=== PATIENT | male | born 2005 | race Two or more races ===

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

== ENCOUNTER 2023-02-23 18:19 | Emergency (ER) | payer MEDICAID ==
[~2023-02-23] VITALS: Ht 177.8 cm; Wt 101.5 kg
[2023-02-23] MEDS ORDERED: AUG875T PO (19:44)
[2023-02-23] MEDS ORDERED: IBUP-1454 PO (19:44)
[2023-02-23] MEDS ORDERED: IBUPROFEN 600 MG TAB PO ONE (19:45)
[2023-02-23 20:01] VITALS: BP 142/86; PULSE 90; RESP 16; TEMP 99.6; O2SAT 98
== END 2023-02-23 20:05 | disposition home or self-care (01) ==
LOC: ER 18:19
DX: K08.89 Other specified disorders of teeth and supporting structures (principal)

== ENCOUNTER 2023-03-30 08:27 | Emergency (ER) | payer MEDICAID ==
[~2023-03-30] VITALS: Ht 172.7 cm; Wt 104.8 kg
[~2023-03-30 08:27] MED LIST: AUG875T PO; IBUP-1454 PO
[2023-03-30 08:33] VITALS: BP 139/79; PULSE 91; RESP 18; TEMP 97.8; O2SAT 98
[2023-03-30] MEDS ORDERED: AMOX875T3 PO (09:14)
[2023-03-30] MEDS ORDERED: IBUP-1456 PO (09:14)
== END 2023-03-30 09:30 | disposition home or self-care (01) ==
LOC: ER 08:27
DX: H66.93 Otitis media, unspecified, bilateral (principal); Z90.89 Acquired absence of other organs; Z79.1 Long term (current) use of non-steroidal anti-inflammatories (NSAID); Z79.899 Other long term (current) drug therapy

== ENCOUNTER 2023-04-18 13:21 | Emergency (ER) | payer MEDICAID ==
[~2023-04-18] VITALS: Ht 172.7 cm; Wt 109.3 kg
[~2023-04-18 13:21] MED LIST changes: +AMOX875T3 PO; +IBUP-1456 PO
[2023-04-18 13:46] VITALS: BP 133/69; PULSE 81; RESP 18; O2SAT 96
[2023-04-18] MEDS ORDERED: IBUP-1456 PO (14:35)
== END 2023-04-18 14:46 | disposition home or self-care (01) ==
LOC: ER 13:21
DX: S93.491A Sprain of other ligament of right ankle, initial encounter (principal); Z98.890 Other specified postprocedural states; Z79.1 Long term (current) use of non-steroidal anti-inflammatories (NSAID); Z79.899 Other long term (current) drug therapy; X37.1XXA Tornado, initial encounter; Y93.89 Activity, other specified; Y92.098 Other place in other non-institutional residence as the place of occurrence of the external cause; Y99.8 Other external cause status
CPT/HCPCS: 73610; 73630

== ENCOUNTER 2023-04-18 19:37 | Emergency (ER) | payer MEDICAID ==
[~2023-04-18] VITALS: Ht 170.2 cm; Wt 106.0 kg
[2023-04-18 20:07] VITALS: BP 123/78; PULSE 84; RESP 20; O2SAT 98
== END 2023-04-19 00:42 | disposition left against medical advice (07) ==
LOC: ER 19:42
DX: S93.401D Sprain of unspecified ligament of right ankle, subsequent encounter (principal); Z53.21 Procedure and treatment not carried out due to patient leaving prior to being seen by health care provider; X50.1XXD Overexertion from prolonged static or awkward postures, subsequent encounter

== ENCOUNTER 2024-01-26 08:36 | Emergency (ER) | payer MEDICAID ==
[~2024-01-26] VITALS: Ht 177.8 cm; Wt 106.0 kg
[~2024-01-26 08:36] MED LIST changes: +IBUP1TAB5 PO
[2024-01-26] MEDS ORDERED: AZIT500T66 PO (10:22)
[2024-01-26] MEDS ORDERED: ACET-1304 PO (10:22)
[2024-01-26 10:38] VITALS: BP 137/86; PULSE 83; RESP 18; O2SAT 100
== END 2024-01-26 10:45 | disposition home or self-care (01) ==
LOC: ER 08:36
DX: U07.1 COVID-19 (principal); J03.90 Acute tonsillitis, unspecified; Z79.899 Other long term (current) drug therapy; Z90.89 Acquired absence of other organs; Z79.1 Long term (current) use of non-steroidal anti-inflammatories (NSAID)

== ENCOUNTER 2024-03-21 17:25 | Emergency (ER) | payer MEDICAID ==
[~2024-03-21] VITALS: Ht 180.3 cm; Wt 65.2 kg
[~2024-03-21 17:25] MED LIST changes: +ACET-1304 PO; +AZIT500T66 PO
[2024-03-21 18:36] VITALS: BP 140/86; PULSE 93; RESP 17; TEMP 99.1; O2SAT 97
[2024-03-21] MEDS: AZITHROMYCIN 250 MG TAB PO ONE (20:02)
[2024-03-21] MEDS: cefTRIAXone SODIUM 250 MG VL IM ONE (20:02)
[2024-03-24 12:06] LABS: Chlamydia Trachomatis, NAA Negative (Negative); Neisseria gonorrhoeae, NAA Negative (Negative)
== END 2024-03-21 20:29 | disposition home or self-care (01) ==
LOC: ER 17:25
DX: N48.9 Disorder of penis, unspecified (principal); Z20.2 Contact with and (suspected) exposure to infections with a predominantly sexual mode of transmission
CPT/HCPCS: 87491; 87591; 96372; 99283; J0696

== ENCOUNTER 2024-05-30 16:55 | Emergency (ER) | payer MEDICAID ==
[~2024-05-30] VITALS: Ht 175.3 cm; Wt 105.6 kg
[2024-05-30 17:29] VITALS: BP 118/99; PULSE 88; RESP 18; TEMP 98.5; O2SAT 97
[2024-05-30] MEDS ORDERED: CEPH500C PO (17:32)
--- NOTE | 2024-05-30 17:33 | ED.PDOC ---
History of Present Illness(SKN HPI Comments A 18 YEAR OLD MALE PRESENTS TO THE ED WITH COMPLAINT OF BLISTER OF RIGHT PLANTAR FOOT. PATIENT STATES HE HAS BEEN WALKING A LOT LATELY AND NOTES A BLISTER ON HIS RIGHT PLANTAR FOOT HOT TODAY AND BEGAN TO BLEED. PATIENT WOULD LIKE TO HAVE THIS BLISTER WOUND CHECKED. PATIENT DENIES FEVER, CHILLS, SHORTNESS OF BREATH, CHEST PAIN, ABDOMINAL PAIN, NAUSEA, VOMITING, HEADACHE, OR OTHER COMPLAINTS. NO OTHER SYMPTOMS OR MODIFYING FACTORS AT THIS TIME. PATIENT IS ALERT, ORIENTED X 4, AND HAS STEADY GAIT. Chief Complaint: Lower Extremity Time Seen by MD: 17:09 Primary Care Provider: YANI History of Present Illness: Nurses Notes, Medications, Allergies Allergies: Coded Allergies: NO KNOWN ALLERGIES (Unverified , 05/03/15) Home Meds Active Scripts Ibuprofen (Ibuprofen) 800 Mg Tab, 1 TAB PO TID, #24 TAB Prov:RODRIGO ORLANDO 05/30/24 Cephalexin Monohydrate (Cephalexin) 500 Mg Cap, 1 CAP PO QID, #28 CAP Prov:RODRIGO ORLANDO 05/30/24 Acetaminophen (Tylenol Extra Strength Fo) 500 Mg Tab, 650 MG PO TID, #30 TAB Prov:RODRIGO ORLANDO 01/26/24 Azithromycin (Azithromycin) 500 Mg Tab, 1 TAB PO DAILY, #5 TAB Prov:RODRIGO ORLANDO 01/26/24 Ibuprofen Micronized (Ibuprofen) 600 Mg Tab, 600 MG PO TIDP PRN for 30 Days, #90 TAB 0 Refills Prov:KOBE MEJIA NP 01/09/24 Ibuprofen (Ibuprofen) 800 Mg Tab, 1 TAB PO TID, #30 TAB Prov:RODRIGO ORLANDO 04/18/23 Ibuprofen (Ibuprofen) 800 Mg Tab, 1 TAB PO TID, #24 TAB Prov:RODRIGO ORLANDO 03/30/23 Amoxicillin Trihydrate (Amoxicillin) 875 Mg Tab, 1 TAB PO BID, #20 TAB Prov:RODRIGO ORLANDO 03/30/23 Ibuprofen (Ibuprofen) 600 Mg Tab, 1 TAB PO Q6HPRN PRN, #30 TAB 0 Refills Prov:LUCA BONILLA 02/23/23 Amoxicillin & Pot Clavulanate (AUGMENTIN TABLET) 875 Mg Tb, 875 MG PO BID for 7 Days, #14 TAB 0 Refills Prov:LUCA BONILLA HIEU 02/23/23 Information Source: Patient Mode of Arrival: Ambulatory Severity: Moderate Timing: Hours Duration: Since onset, Hours Prehospital treatment: None Location: Foot (RIGHT PLANTAR FOOT) Mechanism: Spontaneous Onset Occurence: Indoors Object: None Condition of Object: None Retained Foreign Body: No Wound Type: Other (BLISTER) Immunization Status of Animal: NA Tetanus: Unknown History of: None Associated Signs and Symptoms: Redness, Pain Past Medical History PAST MEDICAL HISTORY: Denies Surgical History: Thyroidectomy Family History Family History: Reviewed,noncontributory to illness Social History Smoker: Non-Smoker Alcohol: Denies ETOH Use Drugs: Denies Drug Use Lives In: Home Constitutional: denies: chills, diaphoresis, fatigue, fever, malaise, sweats, weakness, others EENTM: denies: blurred vision, double vision, ear bleeding, ear discharge, ear drainage, ear pain, ear ringing, eye pain, eye redness, hearing loss, mouth pain, mouth swelling, nasal discharge, nose bleeding, nose congestion, nose pain, photophobia, tearing, throat pain, throat swelling, voice changes, others Respiratory: denies: cough, hemoptysis, orthopnea, SOB at rest, shortness of breath, SOB with excertion, stridor, wheezing, others Cardiovascular: denies: chest pain, dizzy spells, diaphoresis, Dyspnea on exertion, edema, irregular heart beat, left arm pain, lightheadedness, palpitations, PND, syncope, others Gastrointestinal: denies: abdomen distended, abdominal pain, blood streaked bowels, constipated, diarrhea, dysphagia, difficulty swallowing, hematemesis, melena, nausea, poor appetite, poor fluid intake, rectal bleeding, rectal pain, vomiting, others Genitourinary: denies: burning, dysuria, flank pain, frequency, hematuria, incontinence, penile discharge, penile sore, pain, testicle pain, testicle swelling, urgency, others Neurological: denies: dizziness, fainting, headache, left sided numbness, left sided weakness, numbness, paresthesia, pre-existing deficit, right sided numbness, right sided weakness, seizure, speech problems, tingling, tremors, w eakness, others Musculoskeletal: denies: back pain, gout, joint pain, joint swelling, muscle pain, muscle stiffness, neck pain, others Integumetry: reports: lesions, wounds, others (BLISTER OF RIGHT PLANTAR FOOT); denies: bruises, change in color, change in hair/nails, dryness, laceration, lumps, rash Allergic/Immunocompromised: denies: Difficulty Healing, Frequent Infections, Hives, Itching, others Hematologic/Lymphatic: denies: anemia, blood clots, easy bleeding, easy bruising, swollen glands, others Endocrine: denies: excessive hunger, excessive sweating, excessive thirst, excessive urination, flushing, intolerance to cold, intolerance to heat, unexplained weight gain, unexplained weight loss, others Psychiatric: denies: anxiety, bipolar disorder, depression, hopeless, panic disorder, schizophrenia, sleepless, suicidal, others All Other Systems: Reviewed and Negative Physical Exam General Appearance: No Apparent Distress, Obese HEENT: Normal ENT Inspection, PERRL/EOMI, Pharynx Normal, TMs Normal Neck: Full Range of Motion, Non-Tender, Normal, Normal Inspection Respiratory: Chest Non-Tender, Lungs Clear, No Accessory Muscle Use, No Respiratory Distress, Normal Breath Sounds Cardiovascular: No Edema, No JVD, No Murmur, No Gallop, Normal Peripheral Pulses, Regular Rate/Rhythm Breast Exam: Deferred Gastrointestinal: No Organomegaly, Non Tender, No Pulsatile Mass, Normal Bowel Sounds, Soft Genitalia: Deferred Pelvic: Deferred Rectal: Deferred Extremities: No calf tenderness, Normal capillary refill, Normal range of motion, No pedal edema, Tender (WITH ONE BIG BLISTER ON RIGHT PLANTAR FOOT, NO BONY TENDERNESS AND SWELLING. ) Musculoskeletal : Apperance: Normal Neurologic: Alert, private detective II-XII nml as Tested, No Motor Deficits, Normal Affect, Normal Mood, No Sensory Deficits Cerebellar Function: Normal Reflexes: Normal Skin: Dry, Normal Color, Warm, Wounds (A BIG RUPTURED BLISTER ON RIGHT PLANTAR FOOT, NO BLEEDING, FB AND SWELLING. ) Peripheral Pulses: 2+ carotid (R), 2+ carotid (L), 2+ dorsalis pedis (R), 2+ dorsalis pedis (L) Lymphatic: No Adenopathy Was a procedure done? Was a procedure done?: No Differential Diagnosis (INTG) Differential Diagnosis: Cellulitis, Insect Envenomation, Puncture Wound, Other (BLISTER) Differential Diagnosis: N/A Differential Diagnosis: N/A Abscess: N/A Differential Diagnosis: N/A X-Ray, Labs, Meds, VS Vital Signs Date Time Temp Pulse Resp B/P (MAP) Pulse Ox O2 Delivery O2 Flow Rate FiO2 05/30/24 17:29 88 18 97 Room Air 05/30/24 17:29 98.5 88 18 118/99 (105) 97 98.5 05/30/24 17:03 98.5 88 18 118/79 (92) 97 X-Ray, Labs, Meds, VS Comment TREATMENT: SKIN FROM PATIENT'S RIGHT PLANTAR FOOT WAS REMOVED AND PATIENT'S BLISTER WOUND WAS THEN CLEANED USING NORMAL SALINE. STERILE GAUZE WAS THEN APPLIED. PATIENT TOLERATED WELL. Time of 1ST Reevaluation: 18:00 Reevaluation 1ST: Improved Patient Education/Counseling: Diagnosis, Treatment, Need For Follow Up Family Education/Counseling: Diagnosis, Treatment, Need For Follow Up Medical Screening: No EMC Exist At This Time Departure 1 Departure Time of Disposition: 18:00 Impression: Primary Impression: Blister of plantar aspect of right foot Qualified Codes: S90.821A - Blister (nonthermal), right foot, initial encounter Disposition: HOME / SELF CARE / HOMELESS Condition: Stable Additional Instructions: FOLLOW-UP WITH PCP IN 1 TO 2 DAYS. TAKE MEDICATIONS PRESCRIBED. RETURN TO ED FOR ANY NEW OR WORSENING SYMPTOMS. e-Prescriptions Ibuprofen (Ibuprofen) 800 Mg Tab 1 TAB PO TID, #24 TAB Prov: RODRIGO ORLANDO 05/30/24 Cephalexin Monohydrate (Cephalexin) 500 Mg Cap 1 CAP PO QID, #28 CAP Prov: RODRIGO ORLANDO 05/30/24 Discharged With: Self Critical Care Note Critical Care Time?: No Stability Stability form required: No I personally scribed for RODRIGO ORLANDO ([email or web address]) on 05/30/24 at 17:33. Electronically submitted by Eugenio Gomez ([email or web address]). RODRIGO ORLANDO May 30, 2024 17:33
[2024-05-30] MEDS: IBUPROFEN 800 MG TAB PO ONE (17:35)
== END 2024-05-30 17:50 | disposition home or self-care (01) ==
LOC: ER 16:55
DX: S90.821A Blister (nonthermal), right foot, initial encounter (principal); Z79.1 Long term (current) use of non-steroidal anti-inflammatories (NSAID); Z90.89 Acquired absence of other organs; Z79.899 Other long term (current) drug therapy; X58.XXXA Exposure to other specified factors, initial encounter; Y93.89 Activity, other specified; Y92.89 Other specified places as the place of occurrence of the external cause; Y99.8 Other external cause status

== ENCOUNTER 2024-06-29 10:47 | Emergency (ER) | payer MEDICAID ==
[~2024-06-29 10:47] MED LIST changes: +CEPH500C PO
== END 2024-06-29 11:17 | disposition left against medical advice (07) ==
LOC: ER 10:47
DX: R10.9 Unspecified abdominal pain (principal); Z53.21 Procedure and treatment not carried out due to patient leaving prior to being seen by health care provider

== ENCOUNTER 2024-07-02 04:06 | Emergency (ER) | payer MEDICAID ==
[~2024-07-02] VITALS: Ht 180.3 cm; Wt 108.9 kg
[2024-07-02 04:46] VITALS: BP 121/80; PULSE 63; RESP 16; TEMP 98.9; O2SAT 97
[2024-07-02] MEDS ORDERED: ALBUAER3 IN (04:56)
[2024-07-02] MEDS ORDERED: PRED20TA2 PO (04:56)
[2024-07-02] MEDS ORDERED: AMOX875T4 PO (04:56)
[2024-07-02] MEDS ORDERED: ACET500T58 PO (04:56)
--- NOTE | 2024-07-02 04:56 | ED.PDOC ---
SOB-HPI HPI Comments 18-year-old male presents to ER with complaints of cough x2 days. Patient with PMH of asthma reports he has been experiencing productive cough with green phlegm, sore throat and congestion x2 days. Reports he has been using [id number] Mucinex for his symptoms without relief. He reports 7/10 sore throat pain, denying any other pain. Patient also states he recently ran out of his albuterol inhaler that he uses as needed for asthma and is requesting a refill of this in ER today. Denies fever, body aches, chills, shortness of breath, hemoptysis, chest pain, difficulty swallowing, known exposure to sick contacts or any further symptoms/complaints Chief Complaint: Cough Time Seen by MD: 04:15 Primary Care Provider: YANI Corona notes: Nurses Notes, Medications, Allergies Information Source: Patient Mode of Arrival: Ambulatory Past Medical History PAST MEDICAL HISTORY: Asthma Surgical History: Tonsillectomy Family History Family History: Unknown Social History Smoker: Non-Smoker Alcohol: Denies ETOH Use Drugs: Denies Drug Use Lives In: Home Constitutional: denies: chills, diaphoresis, fatigue, fever, malaise, sweats, weakness, others EENTM: reports: others (As stated in HPI) Respiratory: reports: others (As stated in HPI) Cardiovascular: denies: chest pain, dizzy spells, diaphoresis, Dyspnea on exertion, edema, irregular heart beat, left arm pain, lightheadedness, palpit ations, PND, syncope, others Gastrointestinal: denies: abdomen distended, abdominal pain, blood streaked b owels, constipated, diarrhea, dysphagia, difficulty swallowing, hematemesis, melena, nausea, poor appetite, poor fluid intake, rectal bleeding, rectal pain, vomiting, others Genitourinary: denies: burning, dysuria, flank pain, frequency, hematuria, incontinence, penile discharge, penile sore, pain, testicle pain, testicle swelling, urgency, others Neurological: denies: dizziness, fainting, headache, left sided numbness, left sided weakness, numbness, paresthesia, pre-existing deficit, right sided numbness, right sided weakness, seizure, speech problems, tingling, tremors, weakness, others Musculoskeletal: denies: back pain, gout, joint pain, joint swelling, muscle pain, muscle stiffness, neck pain, others Integumetry: denies: bruises, change in color, change in hair/nails, dryness, laceration, lesions, lumps, rash, wounds, others Allergic/Immunocompromised: denies: Difficulty Healing, Frequent Infections, Hives, Itching, others Hematologic/Lymphatic: denies: anemia, blood clots, easy bleeding, easy bruisi ng, swollen glands, others Endocrine: denies: excessive hunger, excessive sweating, excessive thirst, exce ssive urination, flushing, intolerance to cold, intolerance to heat, unexplained weight gain, unexplained weight loss, others Psychiatric: denies: anxiety, bipolar disorder, depression, hopeless, panic disorder, schizophrenia, sleepless, suicidal, others Physical Exam General Appearance: No Apparent Distress, Obese HEENT: Normal ENT Inspection, PERRL/EOMI, Pharynx Normal, TMs Normal Neck: Full Range of Motion, Non-Tender, Normal Respiratory: Chest Non-Tender, Lungs Clear, No Accessory Muscle Use, No Respiratory Distress, Normal Breath Sounds Cardiovascular: No Murmur, No Gallop, Regular Rate/Rhythm Breast Exam: Deferred Gastrointestinal: NOT DONE Genitalia: Deferred Pelvic: Deferred Rectal: Deferred Extremities: Normal capillary refill, Normal range of motion Neurologic: Alert, No Motor Deficits, Normal Affect, Normal Mood, No Sensory Deficits Cerebellar Function: Normal Reflexes: Normal Skin: Dry, Normal Color, Warm Peripheral Pulses: 2+ Radial (R), 2+ Radial (L), 2+ Brachial (R), 2+ Brachial (L) Lymphatic: No Adenopathy Was a procedure done? Was a procedure done?: No Sedation Sedation?: No Differential Dx Differential Diagnosis: Pneumonia, Respiratory Distress, Pharyngitis X-Ray, Labs, Meds, VS Vital Signs Date Time Temp Pulse Resp B/P (MAP) Pulse Ox O2 Delivery O2 Flow Rate FiO2 07/02/24 04:46 98.9 63 16 121/80 (94) 97 98.9 07/02/24 04:46 63 16 97 Room Air 07/02/24 04:29 98.9 63 16 121/80 (94) 97 07/02/24 04:29 16 97 Room Air* 0 21 Advised to drink plenty of fluids Patient in no distress during ER visit/prior to discharge Advised to follow up with PCP in 1-2 days Patient verbalized understanding and agreeable with current plan of care Advised to return to ER immediately if symptoms worsen Time of 1ST Reevaluation: 04:24 Reevaluation 1ST: N/A Patient Education/Counseling: Diagnosis, Treatment, Prognosis, Need For Follow Up Family Education/Counseling: No Family Present Departure 1 Departure Time of Disposition: 04:52 Impression: Primary Impression: URI (upper respiratory infection) Qualified Codes: J06.9 - Acute upper respiratory infection, unspecified Disposition: 01 HOME / SELF CARE / HOMELESS Condition: Stable e-Prescriptions Albuterol Sulfate (VENTOLIN MDI) 90 Mcg Ih 2 PUFF IN Q4HPRN, #1 INH 0 Refills Prov: JONATHAN LOPEZ 07/02/24 Acetaminophen (Acetaminophen) 500 Mg Tab 500 MG PO Q4HPRN, #30 TAB 0 Refills Prov: JONATHAN LOPEZ 07/02/24 Prednisone (Prednisone) 20 Mg Tab 20 MG PO BID for 5 Days, #10 TAB 0 Refills Prov: JONATHAN LOPEZ 07/02/24 Amoxicillin & Pot Clavulanate (Amoxicillin/Potassium Cla) 875 Mg Tab 1 TAB PO BID for 7 Days, #14 TAB 0 Refills Prov: JONATHAN LOPEZ 07/02/24 Discharged With: Self Critical Care Note Critical Care Time?: No Stability Stability form required: No Heart Score Heart Score: Heart Score Response (Comments) Value History N/A 0 EKG N/A 0 Age N/A 0 Risk Factors N/A 0 Troponin N/A 0 Total 0 JONATHAN LOPEZ Jul 02, 2024 04:56
== END 2024-07-02 05:07 | disposition home or self-care (01) ==
LOC: ER 04:06
DX: J06.9 Acute upper respiratory infection, unspecified (principal); J45.909 Unspecified asthma, uncomplicated; Z90.89 Acquired absence of other organs

== ENCOUNTER 2024-07-04 07:16 | Emergency (ER) | payer MEDICAID ==
[~2024-07-04] VITALS: Ht 180.3 cm; Wt 105.6 kg
[~2024-07-04 07:16] MED LIST changes: +ACET500T58 PO; +ALBUAER3 IN; +AMOX875T4 PO; +PRED20TA2 PO
[2024-07-04 08:06] VITALS: BP 136/90; PULSE 105; RESP 20; TEMP 99.6; O2SAT 97
[2024-07-04] MEDS ORDERED: PROM1SOL4 PO (08:43)
[2024-07-04] MEDS ORDERED: LIDO2SOL26 MT (08:43)
[2024-07-04] MEDS: cefTRIAXone SOD 1,000 MG VL IM ONE (08:46)
--- NOTE | 2024-07-04 08:47 | ED.PDOC ---
SOB-HPI HPI Comments A 18 YEAR OLD MALE PRESENTS TO THE ED WITH COMPLAINT OF COUGH AND SORE THROAT. PATIENT STATES HE HAS BEEN EXPERIENCING COUGH, CONGESTION, BODY ACHES, AND A SORE THROAT FOR THE PAST 3 DAYS. PATIENT REPORTS HE CAME TO THIS ED YESTERDAY MORNING FOR THE SAME COMPLAINT WHERE HE WAS PRESCRIBED AUGMENTIN, PREDNISONE, TYLENOL, AND AN ALBUTEROL INHALER. PATIENT ALSO NOTES HE WENT TO [facility] 2 DAYS AGO FOR THIS COMPLAINT WHERE HE WAS GIVEN A STEROID INJECTION, BUT STATES THERE IS NO IMPROVEMENT. PATIENT REPORTS HE TOOK ONE DOSE OF HIS MEDICATION HE WAS PRESCRIBED YESTERDAY AND DID NOT REPORT ANY IMPROVEMENT, PROMPTING HIM TO COME TO THE ED TODAY FOR EVALUATION ONCE AGAIN. PATIENT DENIES FEVER, CHILLS, SHORTNESS OF BREATH, CHEST PAIN, ABDOMINAL PAIN, NAUSEA, VOMITING, HEADACHE, OR OTHER COMPLAINTS. NO OTHER SYMPTOMS OR MODIFYING FACTORS AT THIS TIME. PATIENT IS ALERT, ORIENTED X 4, AND HAS STEADY GAIT. Chief Complaint: Cough Time Seen by MD: 07:40 Primary Care Provider: YANI Corona notes: Nurses Notes, Medications Information Source: Patient Mode of Arrival: Ambulatory Severity: Moderate Timing: Days Duration: Since onset, Days Context: Spontaneous Onset PE Risk Factors: None History of: None Prehospital treatment: None Modifying Factors: Nothing Associated Signs and Symptoms: Cough, Nasal Congestion, Sore Throat If cough with SOB: Productive Past Medical History PAST MEDICAL HISTORY: Asthma Surgical History: Tonsillectomy Family History Family History: Reviewed,noncontributory to illness Social History Smoker: Non-Smoker Alcohol: Denies ETOH Use Drugs: Denies Drug Use Lives In: Home Constitutional: denies: chills, diaphoresis, fatigue, fever, malaise, sweats, weakness, others EENTM: reports: nose congestion, throat pain, throat swelling; denies: blurred vision, double vision, ear bleeding, ear discharge, ear drainage, ear pain, ear ringing, eye pain, eye redness, hearing loss, mouth pain, mouth swelling, nasal discharge, nose bleeding, nose pain, photophobia, tearing, voice changes, others Respiratory: reports: cough; denies: hemoptysis, orthopnea, SOB at rest, shortness of breath, SOB with excertion, stridor, wheezing, others Cardiovascular: denies: chest pain, dizzy spells, diaphoresis, Dyspnea on exertion, edema, irregular heart beat, left arm pain, lightheadedness, palpitations, PND, syncope, others Gastrointestinal: denies: abdomen distended, abdominal pain, blood streaked bowels, constipated, diarrhea, dysphagia, difficulty swallowing, hematemesis, melena, nausea, poor appetite, poor fluid intake, rectal bleeding, rectal pain, vomiting, others Genitourinary: denies: burning, dysuria, flank pain, frequency, hematuria, incontinence, penile discharge, penile sore, pain, testicle pain, testicle swelling, urgency, others Neurological: denies: dizziness, fainting, headache, left sided numbness, left sided weakness, numbness, paresthesia, pre-existing deficit, right sided numbness, right sided weakness, seizure, speech problems, tingling, tremors, weakness, others Musculoskeletal: reports: muscle pain; denies: back pain, gout, joint pain, silke nt swelling, muscle stiffness, neck pain, others Integumetry: denies: bruises, change in color, change in hair/nails, dryness, laceration, lesions, lumps, rash, wounds, others Allergic/Immunocompromised: denies: Difficulty Healing, Frequent Infections, Hives, Itching, others Hematologic/Lymphatic: denies: anemia, blood clots, easy bleeding, easy bruising, swollen glands, others Endocrine: denies: excessive hunger, excessive sweating, excessive thirst, excessive urination, flushing, intolerance to cold, intolerance to heat, unexplained weight gain, unexplained weight loss, others Psychiatric: denies: anxiety, bipolar disorder, depression, hopeless, panic disorder, schizophrenia, sleepless, suicidal, others All Other Systems: Reviewed and Negative Physical Exam General Appearance: No Apparent Distress, Normal HEENT: PERRL/EOMI, Pharyngeal Erythema (VESICLE PHARYNX WITH RED SPOTS, NO EXUDATES, tREP PHARYNGITIS?? ), TMs Normal Neck: Full Range of Motion, Non-Tender, Normal, Normal Inspection Respiratory: Chest Non-Tender, Lungs Clear, No Accessory Muscle Use, No Respiratory Distress, Normal Breath Sounds Cardiovascular: No Edema, No JVD, No Murmur, No Gallop, Normal Peripheral Pulses, Regular Rate/Rhythm Breast Exam: Deferred Gastrointestinal: No Organomegaly, Non Tender, No Pulsatile Mass, Normal Bowel Sounds, Soft Genitalia: Deferred Pelvic: Deferred Rectal: Deferred Extremities: No calf tenderness, Normal capillary refill, Normal inspection, Normal range of motion, Non-tender, No pedal edema Musculoskeletal : Apperance: Normal Neurologic: Alert, sweet pickle maker II-XII nml as Tested, No Motor Deficits, Normal Affect, Normal Mood, No Sensory Deficits Cerebellar Function: Normal Reflexes: Normal Skin: Dry, Normal Color, Warm Peripheral Pulses: 2+ carotid (R), 2+ carotid (L) Lymphatic: No Adenopathy Was a procedure done? Was a procedure done?: No Differential Dx Differential Diagnosis: Bronchitis, Pneumonia, Sinusitis, Allergic Rhinitis, Otitis Media, Pharyngitis, URI X-Ray, Labs, Meds, VS Vital Signs Date Time Temp Pulse Resp B/P (MAP) Pulse Ox O2 Delivery O2 Flow Rate FiO2 07/04/24 08:06 105 20 97 Room Air 07/04/24 08:06 99.6 105 20 136/90 (105) 97 99.6 07/04/24 07:40 99.6 105 20 136/90 (105) 97 PATIENT: DANDY KEBEDEACCT: [id number]: [id number] : 2005 LOC: ER ROOM / BED: / AGE / SEX: 18 / M ADM STATUS: REG ER SERVICE 6 ORDERING PHYSICIAN: RODRIGO ORLANDO PROCEDURE(s): CXRP - CHEST PORTABLE REASON: COUGH ORDER NUMBER(s): [id number], ACCESSION NUMBER(s): [id number] CHEST RADIOGRAPH Indication: COUGH Technique: Single frontal view of the chest was obtained COMPARISON: None FINDINGS: Lines and Tubes: None Lungs: Clear Pleura: No effusion. No pneumothorax. Cardiomediastinal contours: Unremarkable Bones: Unremarkable IMPRESSION: No acute disease. ATED BY: RICO WEINBERG MD DICTATED DATE/TIME: 07/04/24847 SIGNED BY: RICO WEINBERG MD SIGNED DATE/TIME: 07/04/24847 CC: X-Ray, Labs, Meds, VS Comment EXTERNAL MEDICAL RECORDS REVIEWED: [NONE] INDEPENDENT HISTORIANS: [NONE] SOCIAL DETERMINANTS OF HEALTH: [NONE] LABS ORDERED: NONE REVIEWED AND INTERPRETED RESULTS: NONE IMAGING ORDERED: XR CHEST: [INTERPRETED BY ME. NO ACUTE FINDINGS. NO PNEUMONIA. NO CONSOLIDATIONS. NO INFILTRATES. PENDING RADIOLOGIST REPORT. ] TREATMENTS ORDERED: ROCEPHIN 1 G IM, PATIENT DECLINED INJECTION AT THIS TIME. PROCEDURES PERFORMED: NONE CRITICAL CARE TIME: NONE I HAVE DISCUSSED THE PATIENT WITH THE ATTENDING PHYSICIAN DR. HAMPTON AND HE AGREES WITH THE PATIENT'S PLAN OF CARE AND DISPOSITION. BASED ON HISTORY OF PRESENT ILLNESS, AND PHYSICAL EXAM, PATIENT WILL BE DISCHARGED HOME. DISCUSSED PLAN FOR DISCHARGE HOME WITH RX [PHENERGAN DM AND 2% VISCOUS LIDOCAINE]. MEDICATION WARNINGS GIVEN. SHARED DECISION MAKING: PATIENT INSTRUCTED TO FOLLOW UP WITH PRIMARY CARE PROVIDER IN 1-2 DAYS FOR RE-EVALUATION OF SYMPTOMS. PATIENT VERBALIZES UNDERSTANDING TO RETURN TO ED FOR NEW OR WORSENING SYMPTOMS OR IF FOLLOW UP WITH PCP CANNOT BE OBTAINED. PATIENT FEELS COMFORTABLE GOING HOME AT THIS TIME. ALL QUESTIONS ADDRESSED AT TIME OF DISCHARGE. Images Reviewed?: Images reviewed and evaluated by me Time of 1ST Reevaluation: 09:00 Reevaluation 1ST: Improved Patient Education/Counseling: Diagnosis, Treatment, Need For Follow Up Family Education/Counseling: Diagnosis, Treatment, Need For Follow Up Medical Screening: No EMC Exist At This Time Departure 1 Departure Time of Disposition: 09:00 Impression: Primary Impression: Acute streptococcal pharyngitis Additional Impression: URI (upper respiratory infection) Qualified Codes: J02.0 - Streptococcal pharyngitis Disposition: 01 HOME / SELF CARE / HOMELESS Condition: Stable Additional Instructions: FOLLOW-UP WITH PCP IN 1 TO 2 DAYS. TAKE MEDICATIONS PRESCRIBED. RETURN TO ED FOR ANY NEW OR WORSENING SYMPTOMS. e-Prescriptions Lidocaine HCl (Mouth-Throat) (Lidocaine HCl Viscous) 2 % Kera 5 ML MT TID, #100 ML Prov: RODRIGO ORLANDO 07/04/24 Promethazine-Dm (Promethazine Dm 6.25-15 mg/5Ml) 1 Kera Kera 5 ML PO TID, #160 ML Prov: RODRIGO ORLANDO 07/04/24 Discharged With: Self Critical Care Note Critical Care Time?: No Stability Stability form required: No Heart Score Heart Score: Heart Score Response (Comments) Value History N/A 0 EKG N/A 0 Age N/A 0 Risk Factors N/A 0 Troponin N/A 0 Total 0 I personally scribed for RODRIGO ORLANDO ([email or web address]) on 07/04/24 at 08:47. Electronically submitted by Eugenio Gomez ([email or web address]). I personally scribed for RODRIGO ORLANDO ([email or web address]) on 07/04/24 at 08:49. Electronically submitted by Eugenio Gomez ([email or web address]). RODRIGO ORLANDO Jul 04, 2024 08:47
--- NOTE | 2024-07-04 08:50 | DVH ---
CHEST RADIOGRAPH Indication: COUGH Technique: Single frontal view of the chest was obtained COMPARISON: None FINDINGS: Lines and Tubes: None Lungs: Clear Pleura: No effusion. No pneumothorax. Cardiomediastinal contours: Unremarkable Bones: Unremarkable IMPRESSION: No acute disease.
== END 2024-07-04 08:52 | disposition home or self-care (01) ==
LOC: ER 07:16
DX: J02.0 Streptococcal pharyngitis (principal); J45.909 Unspecified asthma, uncomplicated; Z90.89 Acquired absence of other organs
CPT/HCPCS: 71045; 99283; J0696

== ENCOUNTER 2024-08-22 12:40 | Emergency (ER) | payer MEDICAID ==
[~2024-08-22] VITALS: Ht 180.3 cm; Wt 108.7 kg
[~2024-08-22 12:40] MED LIST changes: +LIDO2SOL26 MT; +PROM1SOL4 PO
[2024-08-22 13:24] VITALS: BP 124/84; PULSE 87; RESP 17; TEMP 98.7; O2SAT 98
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
[2024-08-22] MEDS ORDERED: BACL10TA PO (13:55)
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
== END 2024-08-22 14:10 | disposition home or self-care (01) ==
LOC: ER 12:50
DX: S29.012A Strain of muscle and tendon of back wall of thorax, initial encounter (principal); S39.012A Strain of muscle, fascia and tendon of lower back, initial encounter; J45.909 Unspecified asthma, uncomplicated; Z79.1 Long term (current) use of non-steroidal anti-inflammatories (NSAID); Z79.52 Long term (current) use of systemic steroids; Z79.899 Other long term (current) drug therapy; Z90.89 Acquired absence of other organs; V43.52XA Car driver injured in collision with other type car in traffic accident, initial encounter; Y93.89 Activity, other specified; Y92.488 Other paved roadways as the place of occurrence of the external cause; Y99.8 Other external cause status
CPT/HCPCS: 72070; 72100

== ENCOUNTER 2024-08-27 05:38 | Emergency (ER) | payer MEDICAID, OTHER ==
[~2024-08-27] VITALS: Ht 180.3 cm; Wt 109.1 kg
[~2024-08-27 05:38] MED LIST changes: +BACL10TA PO
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
[2024-08-27] MEDS: HYDROcodone-ACET 5/325MG TAB PO ONE (07:04)
[2024-08-27 07:05] VITALS: BP 118/70; PULSE 80; RESP 18; TEMP 98; O2SAT 95
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
[2024-08-27] MEDS ORDERED: TRAM50TA2 PO (08:34)
== END 2024-08-27 08:49 | disposition home or self-care (01) ==
LOC: EDBD 05:38 → ER 05:38
DX: M54.9 Dorsalgia, unspecified (principal); J45.909 Unspecified asthma, uncomplicated; Z90.89 Acquired absence of other organs; V89.2XXA Person injured in unspecified motor-vehicle accident, traffic, initial encounter; Y93.I9 Activity, other involving external motion; Y92.488 Other paved roadways as the place of occurrence of the external cause; Y99.8 Other external cause status
CPT/HCPCS: 72070; 72100

== ENCOUNTER 2024-08-31 01:24 | Emergency (ER) | payer MEDICAID, OTHER ==
[~2024-08-31] VITALS: Ht 180.3 cm; Wt 104.5 kg
[~2024-08-31 01:24] MED LIST changes: +TRAM50TA2 PO
[2024-08-31 01:27] VITALS: BP 126/72; PULSE 80; RESP 16; TEMP 98; O2SAT 98
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
[2024-08-31] MEDS: KETOROLAC TROMETH 60MG/2ML VIAL IM ONE (04:09)
[2024-08-31] MEDS: DexAMETHasone SOD PHOS 10MG/1ML VIAL INJ IM ONE (04:10)
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
[2024-08-31] MEDS ORDERED: METH4PAK PO (05:05)
[2024-08-31] MEDS ORDERED: GABA-1308 PO (05:05)
== END 2024-08-31 05:18 | disposition home or self-care (01) ==
LOC: EDBD 01:24 → ER 01:24
DX: M48.061 Spinal stenosis, lumbar region without neurogenic claudication (principal); M54.16 Radiculopathy, lumbar region; M51.379 Other intervertebral disc degeneration, lumbosacral region without mention of lumbar back pain or lower extremity pain; J45.909 Unspecified asthma, uncomplicated; Z90.89 Acquired absence of other organs; Z79.1 Long term (current) use of non-steroidal anti-inflammatories (NSAID); Z79.52 Long term (current) use of systemic steroids; Z79.899 Other long term (current) drug therapy
CPT/HCPCS: 72131; 96372; 99285; J1100; J1885

== ENCOUNTER 2024-09-04 16:01 | Emergency (ER) | payer MEDICAID ==
[~2024-09-04] VITALS: Ht 180.3 cm; Wt 107.4 kg
[~2024-09-04 16:01] MED LIST changes: +GABA-1308 PO; +METH4PAK PO
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
[2024-09-04] MEDS: KETOROLAC TROMETH 60MG/2ML VIAL IM ONE (19:12)
[2024-09-04 19:43] LABS: Urine Bacteria None Seen /hpf (None Seen)
[2024-09-04 20:24] LABS: Urine Blood Negative /uL (Negative); Urine Clarity Clear (Clear); Urine Color Yellow (Yellow); Urine Mucus FEW (None Seen); Urine Protein, UAD TRACE (Negative); Urine Specific Gravity 1.034 (1.001-1.035); Urine Squamous Epithelial Cell FEW /hpf (<5); Urine Urobilinogen Normal (Negative); Urine WBC 1 /HPF (0-3)
[2024-09-04 21:30] VITALS: PULSE 104; RESP 20; O2SAT 99
[2024-09-04 21:43] VITALS: BP 147/85; PULSE 104; RESP 20; TEMP 98.1; O2SAT 99
== END 2024-09-04 21:55 | disposition short-term general hospital (02) ==
LOC: ER 16:01
DX: M48.062 Spinal stenosis, lumbar region with neurogenic claudication (principal); M51.06 Intervertebral disc disorders with myelopathy, lumbar region; J45.909 Unspecified asthma, uncomplicated; Z90.89 Acquired absence of other organs
CPT/HCPCS: 81001; 96372; 99285; J1885

== ENCOUNTER 2024-10-02 19:42 | Emergency (ER) | payer MEDICAID ==
[~2024-10-02] VITALS: Ht 180.3 cm; Wt 111.0 kg
[~2024-10-02 19:42] MED LIST changes: -GABA-1308 PO
[2024-10-02 21:02] VITALS: BP 127/62; PULSE 81; RESP 16; TEMP 99.4; O2SAT 97
--- NOTE | 2024-10-02 22:05 | ED.PDOC ---
Eye-HPI HPI Comments PRESENTS TO ED FOR BILATERAL EYE PROBLEM X 3 DAYS. REPORTS ITCHINESS, REDNESS, TEARING, AND NASAL CONGESTION. DENIES ANY VISION CHANGES. Chief Complaint: Eye Problem Time Seen by MD: 19:47 Primary Care Provider: YANI Allergies: Coded Allergies: NO KNOWN ALLERGIES (Unverified , 05/03/15) Home Meds Active Scripts Methylprednisolone (Medrol Dosepak) 4 Mg Shemar, 4 MG PO UD for 6 Days, #21 TAB 1 Refill UAD Prov:MERCED DECKER PATIENT OBSERVER 08/31/24 Tramadol Hcl (Tramadol Hcl) 50 Mg Tab, 50 MG PO Q8HP PRN for 5 Days, #15 TAB 0 Refills Prov:KOBE MEJIA HAND COKE DRAWER 08/27/24 Baclofen (Baclofen) 10 Mg Tab, 10 MG PO BID, #20 TAB Prov:RODRIGO ORLANDO 08/22/24 Ibuprofen (Ibuprofen) 800 Mg Tab, 1 TAB PO TID, #30 TAB Prov:RODRIGO ORLANDO 08/22/24 Lidocaine HCl (Mouth-Throat) (Lidocaine HCl Viscous) 2 % Kera, 5 ML MT TID, #100 ML Prov:RODRIGO ORLANDO 07/04/24 Promethazine-Dm (Promethazine Dm 6.25-15 mg/5Ml) 1 Kera Kera, 5 ML PO TID, #160 ML Prov:RODRIGO ORLANDO 07/04/24 Albuterol Sulfate (VENTOLIN MDI) 90 Mcg Ih, 2 PUFF IN Q4HPRN, #1 INH 0 Refills Prov:JONATHAN LOPEZ 07/02/24 Acetaminophen (Acetaminophen) 500 Mg Tab, 500 MG PO Q4HPRN, #30 TAB 0 Refills Prov:JONATHAN LOPEZ 07/02/24 Prednisone (Prednisone) 20 Mg Tab, 20 MG PO BID for 5 Days, #10 TAB 0 Refills Prov:JONATHAN LOPEZ 07/02/24 Amoxicillin & Pot Clavulanate (Amoxicillin/Potassium Cla) 875 Mg Tab, 1 TAB PO BID for 7 Days, #14 TAB 0 Refills Prov:JONATHAN LOPEZ 07/02/24 Ibuprofen (Ibuprofen) 800 Mg Tab, 1 TAB PO TID, #24 TAB Prov:RODRIGO ORLANDO 05/30/24 Cephalexin Monohydrate (Cephalexin) 500 Mg Cap, 1 CAP PO QID, #28 CAP Prov:RODRIGO ORLANDO 05/30/24 Acetaminophen (Tylenol Extra Strength Fo) 500 Mg Tab, 650 MG PO TID, #30 TAB Prov:RODRIGO ORLANDO 01/26/24 Azithromycin (Azithromycin) 500 Mg Tab, 1 TAB PO DAILY, #5 TAB Prov:RODRIGO ORLANDO 01/26/24 Ibuprofen Micronized (Ibuprofen) 600 Mg Tab, 600 MG PO TIDP PRN for 30 Days, #90 TAB 0 Refills Prov:KOBE MEJIA HAND COKE DRAWER 01/09/24 Ibuprofen (Ibuprofen) 800 Mg Tab, 1 TAB PO TID, #30 TAB Prov:RODRIGO ORLANDO 04/18/23 Ibuprofen (Ibuprofen) 800 Mg Tab, 1 TAB PO TID, #24 TAB Prov:RODRIGO ORLANDO 03/30/23 Amoxicillin Trihydrate (Amoxicillin) 875 Mg Tab, 1 TAB PO BID, #20 TAB Prov:RODRIGO ORLANDO 03/30/23 Ibuprofen (Ibuprofen) 600 Mg Tab, 1 TAB PO Q6HPRN PRN, #30 TAB 0 Refills Prov:LUCA BONILLA 02/23/23 Amoxicillin & Pot Clavulanate (AUGMENTIN TABLET) 875 Mg Tb, 875 MG PO BID for 7 Days, #14 TAB 0 Refills Prov:LUCA BONILLA 02/23/23 Mode of Arrival: Ambulatory Past Medical History PAST MEDICAL HISTORY: Asthma, Denies Surgical History: Tonsillectomy Family History Family History: Reviewed,noncontributory to illness Social History Smoker: Non-Smoker Alcohol: Denies ETOH Use Drugs: Denies Drug Use Lives In: Home Constitutional: denies: chills, diaphoresis, fatigue, fever, malaise, sweats, weakness, others EENTM: reports: eye redness; denies: blurred vision, double vision, ear bleeding, ear discharge, ear drainage, ear pain, ear ringing, eye pain, hearing loss, mouth pain, mouth swelling, nasal discharge, nose bleeding, nose congestion, nose pain, photophobia, tearing, throat pain, throat swelling, voice changes, others Respiratory: denies: cough, hemoptysis, orthopnea, SOB at rest, shortness of breath, SOB with excertion, stridor, wheezing, others Cardiovascular: denies: chest pain, dizzy spells, diaphoresis, Dyspnea on exertion, edema, irregular heart beat, left arm pain, lightheadedness, palpitat ions, PND, syncope, others Gastrointestinal: denies: abdomen distended, abdominal pain, blood streaked bow els, constipated, diarrhea, dysphagia, difficulty swallowing, hematemesis, melena, nausea, poor appetite, poor fluid intake, rectal bleeding, rectal pain, vomiting, others Genitourinary: denies: burning, dysuria, flank pain, frequency, hematuria, incontinence, penile discharge, penile sore, pain, testicle pain, testicle swelling, urgency, others Neurological: denies: dizziness, fainting, headache, left sided numbness, left sided weakness, numbness, paresthesia, pre-existing deficit, right sided numbness, right sided weakness, seizure, speech problems, tingling, tremors, weakness, others Musculoskeletal: denies: back pain, gout, joint pain, joint swelling, muscle pain, muscle stiffness, neck pain, others Integumetry: denies: bruises, change in color, change in hair/nails, dryness, laceration, lesions, lumps, rash, wounds, others Allergic/Immunocompromised: denies: Difficulty Healing, Frequent Infections, Hives, Itching, others Hematologic/Lymphatic: denies: anemia, blood clots, easy bleeding, easy bruising, swollen glands, others Endocrine: denies: excessive hunger, excessive sweating, excessive thirst, excessive urination, flushing, intolerance to cold, intolerance to heat, unexplained weight gain, unexplained weight loss, others Psychiatric: denies: anxiety, bipolar disorder, depression, hopeless, panic disorder, schizophrenia, sleepless, suicidal, others Physical Exam General Appearance: No Apparent Distress, Normal HEENT: Pharynx Normal, TMs Normal, Other (BILATERAL EYE CONJUNCTIVAL HYPEREMIA WITH CLEAR DRAINAGE AND EYE PUFFINESS) Neck: Full Range of Motion, Non-Tender Respiratory: Lungs Clear, No Respiratory Distress, Normal Breath Sounds Cardiovascular: No Murmur, Normal Peripheral Pulses, Regular Rate/Rhythm Breast Exam: Deferred Gastrointestinal: Non Tender, Soft Genitalia: Deferred Pelvic: Deferred Rectal: Deferred Extremities: Normal capillary refill, Normal inspection, Normal range of motion, Non-tender, No pedal edema Musculoskeletal : Apperance: Normal Neurologic: Alert, equity manager II-XII nml as Tested, No Motor Deficits, Normal Affect, Normal Mood, No Sensory Deficits Cerebellar Function: Normal Reflexes: Normal Skin: Dry, Normal Color, Warm Lymphatic: No Adenopathy Was a procedure done? Was a procedure done?: No EENT DIFF Eye: Chalazion, Conjunctivitis, Allergic, Bacterial, Chlamydial, Foreign Body- Conjunctiva, Foreign Body-Corneal, Foreign Body-Intraocular, Foreign Body-Lid X-Ray, Labs, Meds, VS Vital Signs Date Time Temp Pulse Resp B/P (MAP) Pulse Ox O2 Delivery O2 Flow Rate FiO2 10/02/24 21:02 81 16 97 Room Air 10/02/24 21:02 99.4 81 16 127/62 (83) 97 99.4 10/02/24 19:53 99.4 81 16 127/62 (83) 97 99.4 X-Ray, Labs, Meds, VS Comment LIKELY BACTERIAL PATIENT STATES STARTED IN LEFT EYE THEN WORK ITS WAY TO THE RIGHT HE NOTES SEVERE ITCHINESS MOSTLY AT NIGHT WE WILL SCRIPT MOXIFLOXACIN TR IAL. ADVISED TO REST INCREASE P.O. FLUIDS WITH ELECTROLYTES. FOLLOW UP WITH PCP IN 1-2 DAYS. ER RETURN PRECAUTIONS GIVEN. TAKE MEDICATIONS PRESCRIBED SIDE EFFECTS DISCUSSED. ADVISED CHANGES PILLOWCASE AFTER TREATMENT AND AVOID SCRATCHING HIS EYES HIGHLY CONTAGIOUS. PATIENT INDICATES UNDERSTANDING AGREES WITH DISCHARGE PLAN OF CARE. Time of 1ST Reevaluation: 22:09 Reevaluation 1ST: Improved Patient Education/Counseling: Diagnosis, Treatment, Prognosis, Need For Follow Up Family Education/Counseling: No Family Present Departure 1 Departure Time of Disposition: 22:08 Impression: Primary Impression: Conjunctivitis, acute, bilateral Qualified Codes: H10.33 - Unspecified acute conjunctivitis, bilateral Disposition: 01 HOME / SELF CARE / HOMELESS Condition: Stable e-Prescriptions Moxifloxacin Hydrochloride (Moxifloxacin HCl) 0.5 % Kera 1 DROP OP TID for 7 Days, #3 ML Prov: MERCED DECKER 10/02/24 Discharged With: Self Critical Care Note Critical Care Time?: No Stability Stability form required: MERCED Neff Oct 02, 2024 22:05
[2024-10-02] MEDS ORDERED: MOXI0.5S3 OP (22:09)
== END 2024-10-02 22:25 | disposition home or self-care (01) ==
LOC: ER 19:42
DX: H10.33 Unspecified acute conjunctivitis, bilateral (principal); J45.909 Unspecified asthma, uncomplicated; Z90.89 Acquired absence of other organs; Z79.1 Long term (current) use of non-steroidal anti-inflammatories (NSAID); Z79.52 Long term (current) use of systemic steroids; Z79.899 Other long term (current) drug therapy

== ENCOUNTER 2024-12-24 22:04 | Emergency (ER) | payer MEDICAID ==
[~2024-12-24] VITALS: Ht 180.3 cm; Wt 108.1 kg
[2024-12-24 22:14] VITALS: BP 142/73; PULSE 72; RESP 16; TEMP 98.2; O2SAT 98
== END 2024-12-25 00:09 | disposition left against medical advice (07) ==
LOC: ER 22:10
DX: M25.511 Pain in right shoulder (principal); M25.512 Pain in left shoulder; Z53.21 Procedure and treatment not carried out due to patient leaving prior to being seen by health care provider

== ENCOUNTER 2025-05-24 10:53 | Emergency (ER) | payer MEDICAID ==
[~2025-05-24] VITALS: Ht 172.7 cm; Wt 91.0 kg
--- NOTE | 2025-05-24 11:01 | ED.PDOC ---
Abhinav. trauma (HPI) HPI Comments 19 y.o male presents to the ED via EMS for a chief complaint of right elbow pain. Patient reports having a trip and fall yesterday while playing with his friends, landed on his right elbow and dislocated it. Patient was seen at a hospital in [place] where he had the elbow reduced and he was able to then drive home same day. Patient then woke up today with a tightness sensation, had to take splint off due to increased pain and called 911. She denies any numbness sensation. EMS gave 1 gram of Tylenol IV en route. No allergies reported. Time Seen by MD: 10:54 Primary Care Provider: YANI [place]ona notes: Nurses Notes, Culinary Instructor Notes, Medications Allergies: Coded Allergies: NO KNOWN ALLERGIES (Unverified , 05/03/15) Home Meds Active Scripts Methylprednisolone (Medrol Dosepak) 4 Mg Shemar, 4 MG PO UD for 6 Days, #21 TAB 1 Refill UAD Prov:MERCED DECKER WEB PROGRAMMER 08/31/24 Tramadol Hcl (Tramadol Hcl) 50 Mg Tab, 50 MG PO Q8HP PRN for 5 Days, #15 TAB 0 Refills Prov:KOBE MEJIA LAB TECHNICIAN 08/27/24 Baclofen (Baclofen) 10 Mg Tab, 10 MG PO BID, #20 TAB Prov:RODRIGO ORLANDO 08/22/24 Ibuprofen (Ibuprofen) 800 Mg Tab, 1 TAB PO TID, #30 TAB Prov:RODRIGO ORLANDO 08/22/24 Lidocaine HCl (Mouth-Throat) (Lidocaine HCl Viscous) 2 % Kera, 5 ML MT TID, #100 ML Prov:RODRIGO ORLANDO 07/04/24 Promethazine-Dm (Promethazine Dm 6.25-15 mg/5Ml) 1 Kera Kera, 5 ML PO TID, #160 ML Prov:RODRIGO ORLANDO 07/04/24 Albuterol Sulfate (VENTOLIN MDI) 90 Mcg Ih, 2 PUFF IN Q4HPRN, #1 INH 0 Refills Prov:JONATHAN LOPEZ 07/02/24 Acetaminophen (Acetaminophen) 500 Mg Tab, 500 MG PO Q4HPRN, #30 TAB 0 Refills Prov:JONATHAN LOPEZ 07/02/24 Prednisone (Prednisone) 20 Mg Tab, 20 MG PO BID for 5 Days, #10 TAB 0 Refills Prov:JONATHAN LOPEZ 07/02/24 Amoxicillin & Pot Clavulanate (Amoxicillin/Potassium Cla) 875 Mg Tab, 1 TAB PO B ID for 7 Days, #14 TAB 0 Refills Prov:JONATHAN LOPEZ 07/02/24 Ibuprofen (Ibuprofen) 800 Mg Tab, 1 TAB PO TID, #24 TAB Prov:RODRIGO ORLANDO 05/30/24 Cephalexin Monohydrate (Cephalexin) 500 Mg Cap, 1 CAP PO QID, #28 CAP Prov:RODRIGO ORLANDO 05/30/24 Acetaminophen (Tylenol Extra Strength Fo) 500 Mg Tab, 650 MG PO TID, #30 TAB Prov:RODRIGO ORLANDO 01/26/24 Azithromycin (Azithromycin) 500 Mg Tab, 1 TAB PO DAILY, #5 TAB Prov:RODRIGO ORLANDO 01/26/24 Ibuprofen Micronized (Ibuprofen) 600 Mg Tab, 600 MG PO TIDP PRN for 30 Days, #90 TAB 0 Refills Prov:KOBE MEJIA NP 01/09/24 Ibuprofen (Ibuprofen) 800 Mg Tab, 1 TAB PO TID, #30 TAB Prov:RODRIGO ORLANDO 04/18/23 Ibuprofen (Ibuprofen) 800 Mg Tab, 1 TAB PO TID, #24 TAB Prov:RODRIGO ORLANDO 03/30/23 Amoxicillin Trihydrate (Amoxicillin) 875 Mg Tab, 1 TAB PO BID, #20 TAB Prov:RODRIGO ORLANDO 03/30/23 Ibuprofen (Ibuprofen) 600 Mg Tab, 1 TAB PO Q6HPRN PRN, #30 TAB 0 Refills Prov:LUCA BONILLA 02/23/23 Amoxicillin & Pot Clavulanate (AUGMENTIN TABLET) 875 Mg Tb, 875 MG PO BID for 7 Days, #14 TAB 0 Refills Prov:LUCA BONILLA 02/23/23 Information Source: Patient, Emergency Med Personnel Mode of Arrival: EMS Severity: Moderate Timing: Days (1) Duration: Since onset Location: (R) Elbow Location of laceration: None Mechanism: Fall Associated signs and symtoms: Other Past Medical History PAST MEDICAL HISTORY: Asthma Surgical History: Tonsillectomy Family History Family History: Reviewed,noncontributory to illness Social History Smoker: Non-Smoker Alcohol: Occasionally Drugs: Marijuana Lives In: Home Constitutional: denies: chills, diaphoresis, fatigue, fever, malaise, sweats, weakness, others EENTM: denies: blurred vision, double vision, ear bleeding, ear discharge, ear drainage, ear pain, ear ringing, eye pain, eye redness, hearing loss, mouth pain, mouth swelling, nasal discharge, nose bleeding, nose congestion, nose pain, photophobia, tearing, throat pain, throat swelling, voice changes, others Respiratory: denies: cough, hemoptysis, orthopnea, SOB at rest, shortness of breath, SOB with excertion, stridor, wheezing, others Cardiovascular: denies: chest pain, dizzy spells, diaphoresis, Dyspnea on exertion, edema, irregular heart beat, left arm pain, lightheadedness, palpitations, PND, syncope, others Gastrointestinal: denies: abdomen distended, abdominal pain, blood streaked bowels, constipated, diarrhea, dysphagia, difficulty swallowing, hematemesis, melena, nausea, poor appetite, poor fluid intake, rectal bleeding, rectal pain, vomiting, others Genitourinary: denies: burning, dysuria, flank pain, frequency, hematuria, incontinence, penile discharge, penile sore, pain, testicle pain, testicle swelling, urgency, others Neurological: denies: dizziness, fainting, headache, left sided numbness, left sided weakness, numbness, paresthesia, pre-existing deficit, right sided numbness, right sided weakness, seizure, speech problems, tingling, tremors, weakness, others Musculoskeletal: reports: others; denies: back pain, gout, joint pain, joint swelling, muscle pain, muscle stiffness, neck pain Integumetry: denies: bruises, change in color, change in hair/nails, dryness, laceration, lesions, lumps, rash, wounds, others Hematologic/Lymphatic: denies: anemia, blood clots, easy bleeding, easy bruising, swollen glands, others Endocrine: denies: excessive hunger, excessive sweating, excessive thirst, excessive urination, flushing, intolerance to cold, intolerance to heat, unexplained weight gain, unexplained weight loss, others Psychiatric: denies: anxiety, bipolar disorder, depression, hopeless, panic disorder, schizophrenia, sleepless, suicidal, others All Other Systems: Reviewed and Negative Physical Exam General Appearance: Moderate Distress HEENT: Normal ENT Inspection, Pharynx Normal, TMs Normal Neck: Full Range of Motion, Non-Tender, Normal, Normal Inspection Respiratory: Chest Non-Tender, Lungs Clear, No Accessory Muscle Use, No Respiratory Distress, Normal Breath Sounds Cardiovascular: No Edema, No JVD, No Murmur, No Gallop, Normal Peripheral Pulses, Regular Rate/Rhythm Breast Exam: Deferred Gastrointestinal: No Organomegaly, Non Tender, No Pulsatile Mass, Normal Bowel Sounds, Soft Genitalia: Deferred Pelvic: Deferred Rectal: Deferred Extremities: Decreased range of motion, Swelling, Tender, Other (Right elbow with deformity) Musculoskeletal : Location: Right Extremity Location: Elbow Apperance: Deformity, Limited ROM, Tenderness: Severe Neurologic: Alert, manager mental health II-XII nml as Tested, No Motor Deficits, Normal Affect, Normal Mood, No Sensory Deficits Cerebellar Function: Normal Reflexes: Normal Skin: Dry, Normal Color, Warm Lymphatic: No Adenopathy Was a procedure done? Was a procedure done?: Yes Sedation Sedation?: Yes Informed consent obtained: Yes Sedation start time: 12:04 Sedation end time: 12:10 Sedation total time: 6 minutes Reduction, Radial head sublux Indication: Elbow pain Procedure: Sedation as ordered Post reduction Xrays: Normal position Informed consent obtained: Yes Risks/benefits/alt described: Yes Differential Diagnosis Multiple Trauma: Fractures, Contusion X-Ray, Labs, Meds, VS Vital Signs Date Time Temp Pulse Resp B/P (MAP) Pulse Ox O2 Delivery O2 Flow Rate FiO2 05/24/25 12:10 77 24 100 2.0 28 75 28 96 81 98 05/24/25 11:48 Room Air* 0 21 05/24/25 11:05 98.0 80 20 136/78 100 98.0 Current Medications Medications (Trade) Dose Ordered Sig/Madeleine Route Start Time Stop Time Status Last Admin Etomidate 20 mg ONCE ONCE IV 05/24/25 11:30 05/24/25 11:31 DC 05/24/25 12:04 X-ray of the right elbow shows: FINDINGS/IMPRESSION: Dislocation of the right elbow. Radius and ulna are displaced medially and the humerus is displaced laterally. The patient tolerated the procedure well. The patient was given etomidate 20 mg IV push The patient is now being placed in a sling and is being discharged to follow up with his orthopedic surgeon The patient will return to the emergency department's condition worsens. Images Reviewed?: Images reviewed and evaluated by me Time of 1ST Reevaluation: 10:57 Reevaluation 1ST: Unchanged Patient Education/Counseling: Diagnosis, Treatment, Prognosis, Need For Follow Up Family Education/Counseling: No Family Present Departure 1 Departure Time of Disposition: 14:16 Impression: Primary Impression: Recurrent dislocation, right elbow Additional Impression: Radial head fracture Qualified Codes: S52.121A - Displaced fracture of head of right radius, initial encounter for closed fracture Disposition: 01 HOME / SELF CARE / HOMELESS Condition: Fair Discharged With: Self Critical Care Note Critical Care Time?: No Stability Stability form required: No I personally scribed for PEARL RICCI MD ([email or web address]) on 05/24/25 at 11:01. Electronically submitted by Anna Marie Desai ([facility]). I personally scribed for PEARL RICCI MD ([email or web address]) on 05/24/25 at 12:14. Electronically submitted by Anna Marie Desai ([facility]). I personally scribed for PEARL RICCI MD ([email or web address]) on 05/24/25 at 12:21. Electronically submitted by Anna Marie Desai ([facility]). PEARL RICCI MD May 24, 2025 11:01
[2025-05-24 11:15] VITALS: TEMP 97.8
--- NOTE | 2025-05-24 11:53 | DVH ---
CLINICAL INDICATION: pain TECHNIQUE: 2 radiographic views of the right elbow were obtained. Comparison: XY R FOOT 3 VIEW XRAY on DOS: 04/18/23 FINDINGS/IMPRESSION: Dislocation of the right elbow. Radius and ulna are displaced medially and the humerus is displaced laterally.
[2025-05-24] MEDS: ETOMIDATE (2MG/ML) 20ML VIAL IV ONE (12:04)
--- NOTE | 2025-05-24 12:51 | DVH ---
XY R ELBOW 2V XRAY, INDICATION: POST REDUCTION TECHNICAL DATA: Frontal, oblique and lateral views were obtained of the right elbow. COMPARISON: XY R ELBOW 3 VIEW XRAY on DOS: 05/24/25 FINDINGS: Interval reduction of the elbow dislocation with a small fracture fragment adjacent to the radial head. Soft tissues are swollen. A joint effusion is demonstrated. IMPRESSION: Interval reduction of the elbow dislocation with a small fracture fragment adjacent to the radial head.
[2025-05-24 14:00] VITALS: BP 133/82; PULSE 91; RESP 18; O2SAT 94
== END 2025-05-24 14:50 | disposition home or self-care (01) ==
LOC: EDBD 10:53 → EDUNIT# 10:53 → ER 10:53
DX: S52.121A Displaced fracture of head of right radius, initial encounter for closed fracture (principal); S53.104A Unspecified dislocation of right ulnohumeral joint, initial encounter; F12.90 Cannabis use, unspecified, uncomplicated; F10.90 Alcohol use, unspecified, uncomplicated; J45.909 Unspecified asthma, uncomplicated; Z79.899 Other long term (current) drug therapy; Z90.89 Acquired absence of other organs; Z79.52 Long term (current) use of systemic steroids; Z79.1 Long term (current) use of non-steroidal anti-inflammatories (NSAID); W01.0XXA Fall on same level from slipping, tripping and stumbling without subsequent striking against object, initial encounter; Y93.89 Activity, other specified; Y92.89 Other specified places as the place of occurrence of the external cause; Y99.8 Other external cause status
CPT/HCPCS: 24600; 73070; 73080

== ENCOUNTER 2025-05-28 14:26 | Emergency (ER) | payer MEDICAID ==
[~2025-05-28] VITALS: Ht 180.3 cm; Wt 110.0 kg
--- NOTE | 2025-05-28 15:47 | DVH ---
EXAM: XY R ELBOW 3 VIEW XRAY CLINICAL INDICATION: POSSIBLE ELBOW DISLOCATION TECHNIQUE: XY R ELBOW 3 VIEW XRAY Comparison: XY R ELBOW 2V XRAY on DOS: 05/24/25, XY R ELBOW 3 VIEW XRAY on DOS: 05/24/25, XY R FOOT 3 VIEW XRAY on DOS: 04/18/23 FINDINGS/IMPRESSION: Displaced radial head fracture with moderate joint effusion. Improved anatomic alignment.
[2025-05-28 15:58] VITALS: BP 113/79; PULSE 78; RESP 19; TEMP 97.9; O2SAT 99
--- NOTE | 2025-05-28 16:03 | ED.PDOC ---
History of Present Illness HPI Comments A 19 YEAR OLD FEMALE PRESENTS TO THE ED WITH COMPLAINT OF RIGHT ELBOW PAIN. PATIENT STATES HE HAS A HISTORY OF A RIGHT ELBOW DISLOCATION AND ELBOW FRACTURE THAT OCCURRED 4 DAYS AGO. PATIENT REPORTS HE AN X-RAY ED WHICH REVEALED A FRACTURE OR DISLOCATION THAT WAS REDUCED. PATIENT REPORTS HE ACCIDENTALLY SLIPPED ON HIS RIGHT ELBOW YESTERDAY AND FELT INCREASED PAIN, PROMPTING HIM TO COME TO THE ED TODAY FOR ANOTHER X-RAY TO MAKE SURE HE DID NOT DISLOCATE HIS ELBOW ONCE AGAIN. PATIENT DENIES FEVER, CHILLS, SHORTNESS OF BREATH, CHEST PAIN, ABDOMINAL PAIN, NAUSEA, VOMITING, HEADACHE, OR OTHER COMPLAINTS. NO OTHER SYMPTOMS OR MODIFYING FACTORS AT THIS TIME. PATIENT IS ALERT, ORIENTED X 4, AND HAS STEADY GAIT. 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 MANAGER [employer] 08/31/24 Tramadol Hcl (Tramadol Hcl) 50 Mg Tab, 50 MG PO Q8HP PRN for 5 Days, #15 TAB 0 Refills Prov:KOBE MEJIA CHANGE MANAGEMENT 08/27/24 Baclofen (Baclofen) 10 Mg Tab, 10 MG PO BID, #20 TAB Prov:RODRIGO ORLANDO 08/22/24 Ibuprofen (Ibuprofen) 800 Mg Tab, 1 TAB PO TID, #30 TAB Prov:RODRIGO ORLANDO 08/22/24 Lidocaine HCl (Mouth-Throat) (Lidocaine HCl Viscous) 2 % Kera, 5 ML MT TID, #100 ML Prov:RODRIGO ORLANDO 07/04/24 Promethazine-Dm (Promethazine Dm 6.25-15 mg/5Ml) 1 Kera Kera, 5 ML PO TID, #160 ML Prov:RODRIGO ORLANDO 07/04/24 Albuterol Sulfate (VENTOLIN MDI) 90 Mcg Ih, 2 PUFF IN Q4HPRN, #1 INH 0 Refills Prov:JONATHAN LOPEZ 07/02/24 Acetaminophen (Acetaminophen) 500 Mg Tab, 500 MG PO Q4HPRN, #30 TAB 0 Refills Prov:JONATHAN LOPEZ 07/02/24 Prednisone (Prednisone) 20 Mg Tab, 20 MG PO BID for 5 Days, #10 TAB 0 Refills Prov:JONATHAN LOPEZ 07/02/24 Amoxicillin & Pot Clavulanate (Amoxicillin/Potassium Cla) 875 Mg Tab, 1 TAB PO BID for 7 Days, #14 TAB 0 Refills Prov:JONATHAN LOPEZ 07/02/24 Cephalexin Monohydrate (Cephalexin) 500 Mg Cap, 1 CAP PO QID, #28 CAP Prov:RODRIGO ORLANDO 05/30/24 Acetaminophen (Tylenol Extra Strength Fo) 500 Mg Tab, 650 MG PO TID, #30 TAB Prov:RODRIGO ORLANDO 01/26/24 Azithromycin (Azithromycin) 500 Mg Tab, 1 TAB PO DAILY, #5 TAB Prov:RODRIGO ORLANDO 01/26/24 Ibuprofen Micronized (Ibuprofen) 600 Mg Tab, 600 MG PO TIDP PRN for 30 Days, #90 TAB 0 Refills Prov:KOBE MEJIA NP 01/09/24 Ibuprofen (Ibuprofen) 800 Mg Tab, 1 TAB PO TID, #30 TAB Prov:RODRIGO ORLANDO 04/18/23 Ibuprofen (Ibuprofen) 800 Mg Tab, 1 TAB PO TID, #24 TAB Prov:RODRIGO ORLANDO 03/30/23 Amoxicillin Trihydrate (Amoxicillin) 875 Mg Tab, 1 TAB PO BID, #20 TAB Prov:RODRIGO ORLANDO 03/30/23 Ibuprofen (Ibuprofen) 600 Mg Tab, 1 TAB PO Q6HPRN PRN, #30 TAB 0 Refills Prov:LUCA BONILLA 02/23/23 Amoxicillin & Pot Clavulanate (AUGMENTIN TABLET) 875 Mg Tb, 875 MG PO BID for 7 Days, #14 TAB 0 Refills Prov:LUCA BONILLA 02/23/23 Information Source: Patient Mode of Arrival: Ambulatory Severity: Moderate Timing: Days Duration: Since onset, Days Prehospital treatment: None Medication Refill: For: Other (RIGHT ELBOW PAIN) Past Medical History PAST MEDICAL HISTORY: Asthma Surgical History: Tonsillectomy Family History Family History: Reviewed,noncontributory to illness Social History Smoker: Non-Smoker Alcohol: Occasionally Drugs: Marijuana Lives In: Home Constitutional: denies: chills, diaphoresis, fatigue, fever, malaise, sweats, weakness, others EENTM: denies: blurred vision, double vision, ear bleeding, ear discharge, ear drainage, ear pain, ear ringing, eye pain, eye redness, hearing loss, mouth pain, mouth swelling, nasal discharge, nose bleeding, nose congestion, nose pain, photophobia, tearing, throat pain, throat swelling, voice changes, others Respiratory: denies: cough, hemoptysis, orthopnea, SOB at rest, shortness of breath, SOB with excertion, stridor, wheezing, others Cardiovascular: denies: chest pain, dizzy spells, diaphoresis, Dyspnea on exertion, edema, irregular heart beat, left arm pain, lightheadedness, palpitations, PND, syncope, others Gastrointestinal: denies: abdomen distended, abdominal pain, blood streaked bowels, constipated, diarrhea, dysphagia, difficulty swallowing, hematemesis, melena, nausea, poor appetite, poor fluid intake, rectal bleeding, rectal pain, vomiting, others Genitourinary: denies: burning, dysuria, flank pain, frequency, hematuria, incontinence, penile discharge, penile sore, pain, testicle pain, testicle swelling, urgency, others Neurological: denies: dizziness, fainting, headache, left sided numbness, left sided weakness, numbness, paresthesia, pre-existing deficit, right sided numbness, right sided weakness, seizure, speech problems, tingling, tremors, weakness, others Musculoskeletal: reports: joint pain, others (RIGHT ELBOW PAIN); denies: back pain, gout, joint swelling, muscle pain, muscle stiffness, neck pain Integumetry: denies: bruises, change in color, change in hair/nails, dryness, laceration, lesions, lumps, rash, wounds, others Allergic/Immunocompromised: denies: Difficulty Healing, Frequent Infections, Hives, Itching, others Hematologic/Lymphatic: denies: anemia, blood clots, easy bleeding, easy bruising, swollen glands, others Endocrine: denies: excessive hunger, excessive sweating, excessive thirst, excessive urination, flushing, intolerance to cold, intolerance to heat, unexplained weight gain, unexplained weight loss, others Psychiatric: denies: anxiety, bipolar disorder, depression, hopeless, panic disorder, schizophrenia, sleepless, suicidal, others All Other Systems: Reviewed and Negative Physical Exam General Appearance: No Apparent Distress, Obese HEENT: Normal ENT Inspection, PERRL/EOMI, Pharynx Normal, TMs Normal Neck: Full Range of Motion, Non-Tender, Normal, Normal Inspection Respiratory: Chest Non-Tender, Lungs Clear, No Accessory Muscle Use, No Respiratory Distress, Normal Breath Sounds Cardiovascular: No Edema, No JVD, No Murmur, No Gallop, Normal Peripheral Pulses, Regular Rate/Rhythm Breast Exam: Deferred Gastrointestinal: No Organomegaly, Non Tender, No Pulsatile Mass, Normal Bowel Sounds, Soft Genitalia: Deferred Pelvic: Deferred Rectal: Deferred Extremities: Decreased range of motion, No calf tenderness, Normal capillary refill, No pedal edema, Tender (AND MILD SWELLING ON RIGHT ELBOW, NO DEFORMITY AND DISLOCATION. ) Musculoskeletal : Apperance: Normal Neurologic: Alert, motel operator II-XII nml as Tested, No Motor Deficits, Normal Affect, Normal Mood, No Sensory Deficits Cerebellar Function: Normal Reflexes: Normal Skin: Dry, Normal Color, Warm Peripheral Pulses: 2+ carotid (R), 2+ carotid (L), 2+ dorsalis pedis (R), 2+ dorsalis pedis (L) Lymphatic: No Adenopathy Was a procedure done? Was a procedure done?: No Differential Dx Considerations may include: HISTORY OF RIGHT ELBOW FRACTURE, RADIAL HEAD FRACTURE, DISLOCATION, MUSCLE STRAIN, X-Ray, Labs, Meds, VS Vital Signs Date Time Temp Pulse Resp B/P (MAP) Pulse Ox O2 Delivery O2 Flow Rate FiO2 05/28/25 15:58 97.9 78 19 113/79 (90) 99 97.9 05/28/25 15:58 78 19 99 Room Air 05/28/25 14:30 97.9 78 19 113/79 99 97.9 EXAM: XY R ELBOW 3 VIEW XRAY CLINICAL INDICATION: POSSIBLE ELBOW DISLOCATION TECHNIQUE: XY R ELBOW 3 VIEW XRAY Comparison: XY R ELBOW 2V XRAY on DOS: 05/24/25, XY R ELBOW 3 VIEW XRAY on DOS: 05/24/25, XY R FOOT 3 VIEW XRAY on DOS: 04/18/23 FINDINGS/IMPRESSION: Displaced radial head fracture with moderate joint effusion. Improved anatomic alignment. ATED BY: NATALIE NORRIS MD DICTATED DATE/TIME: 05/28/25 154 SIGNED BY: NATALIE NORRIS MD SIGNED DATE/TIME: 05/28/25 154 CC: X-Ray, Labs, Meds, VS Comment EXTERNAL MEDICAL RECORDS REVIEWED: [NONE] INDEPENDENT HISTORIANS: [NONE] SOCIAL DETERMINANTS OF HEALTH: [NONE] LABS ORDERED: NONE REVIEWED AND INTERPRETED RESULTS: NONE IMAGING ORDERED: XR ELBOW RT TREATMENTS ORDERED: NONE PROCEDURES PERFORMED: NONE CRITICAL CARE TIME: NONE I HAVE DISCUSSED THE PATIENT WITH THE ATTENDING PHYSICIAN DR. RICCI AND HE AGREES WITH THE PATIENT'S PLAN OF CARE AND DISPOSITION. BASED ON HISTORY OF PRESENT ILLNESS, AND PHYSICAL EXAM, PATIENT WILL BE DISCHARGED HOME. DISCUSSED PLAN FOR DISCHARGE HOME WITH RX [IBUPROFEN 800 MG]. MEDICATION WARNINGS GIVEN. SHARED DECISION MAKING: PATIENT INSTRUCTED TO FOLLOW UP WITH PRIMARY CARE PROVIDER IN 1-2 DAYS FOR RE-EVALUATION OF SYMPTOMS. PATIENT VERBALIZES UNDERSTANDING TO RETURN TO ED FOR NEW OR WORSENING SYMPTOMS OR IF FOLLOW UP WITH PCP CANNOT BE OBTAINED. PATIENT FEELS COMFORTABLE GOING HOME AT THIS TIME. ALL QUESTIONS ADDRESSED AT TIME OF DISCHARGE. Images Reviewed?: Images reviewed and evaluated by me Time of 1ST Reevaluation: 16:13 Reevaluation 1ST: Improved Patient Education/Counseling: Diagnosis, Treatment, Need For Follow Up Family Education/Counseling: Diagnosis, Treatment, Need For Follow Up Medical Screening: No EMC Exist At This Time SEPSIS Sepsis Screen Date sepsis recognized/suspect: May 28, 2025 Time Sepsis recognized/suspect: 1432 Recent Procedure: No On Antibiotic Therapy: No Respiratory Rate >20: No Heart Rate >90: No Temp<36 C (96.8 F) or >38.3 C: No SBP <90 or MAP <65 mmHG: No New Acute Mental Status Change: No Is the patient on CPAP, BIPAP,: No Physician Orders R Elbow 3 View Xray (05/28/25 15:01) Vital Signs Date Time Temp Pulse Resp B/P (MAP) Pulse Ox O2 Delivery O2 Flow Rate FiO2 05/28/25 15:58 97.9 78 19 113/79 (90) 99 97.9 05/28/25 15:58 78 19 99 Room Air 05/28/25 14:30 97.9 78 19 113/79 99 97.9 Departure 1 Departure Time of Disposition: 16:13 Impression: Primary Impression: Fracture of radial head, right, closed Qualified Codes: S52.124A - Nondisplaced fracture of head of right radius, initial encounter for closed fracture Disposition: HOME / SELF CARE / HOMELESS Condition: Stable Additional Instructions: FOLLOW-UP WITH PCP IN 1 TO 2 DAYS. TAKE MEDICATIONS PRESCRIBED. RETURN TO ED FOR ANY NEW OR WORSENING SYMPTOMS. e-Prescriptions Ibuprofen (Ibuprofen) 800 Mg Tab 1 TAB PO TID, #24 TAB Prov: RODRIGO ORLANDO 05/28/25 Discharged With: Self Critical Care Note Critical Care Time?: No Stability Stability form required: No I personally scribed for RODRIGO ORLANDO ([email or web address]) on 05/28/25 at 16:03. Electronically submitted by Eugenio Gomez ([email or web address]). RODRIGO ORLANDO May 28, 2025 16:03
== END 2025-05-28 15:59 | disposition home or self-care (01) ==
LOC: ER 14:26
DX: S52.121A Displaced fracture of head of right radius, initial encounter for closed fracture (principal); F12.90 Cannabis use, unspecified, uncomplicated; F10.90 Alcohol use, unspecified, uncomplicated; J45.909 Unspecified asthma, uncomplicated; Z79.899 Other long term (current) drug therapy; Z90.89 Acquired absence of other organs; Z79.52 Long term (current) use of systemic steroids; Z79.1 Long term (current) use of non-steroidal anti-inflammatories (NSAID); X58.XXXA Exposure to other specified factors, initial encounter; Y93.89 Activity, other specified; Y92.89 Other specified places as the place of occurrence of the external cause; Y99.8 Other external cause status
CPT/HCPCS: 73080

== ENCOUNTER 2025-06-18 13:27 | Emergency (ER) | payer MEDICAID ==
[~2025-06-18] VITALS: Ht 180.3 cm; Wt 111.3 kg
[2025-06-18 13:31] VITALS: BP 107/70; PULSE 82; RESP 18; TEMP 98; O2SAT 97
--- NOTE | 2025-06-18 15:03 | ED.PDOC ---
History of Present Illness HPI Comments A 19 YEAR OLD MALE PRESENTS TO THE ED WITH COMPLAINT OF RIGHT ELBOW PAIN. PATIENT STATES HE HAS A HISTORY OF A RIGHT RADIAL HEAD FRACTURE 1 MONTH AGO AND HAD AN ARM SLING PLACED. PATIENT STATES HE SLIPPED ON HIS RIGHT ELBOW WRONG 3 DAYS AGO, PROMPTING HIS PCP 2 DAYS AGO. PATIENT REPORTS HE HAD AN X-RAY DONE BY HIS PRIMARY CARE PHYSICIAN 2 DAYS AGO AND WAS CALLED TODAY AND INFORMED THAT HE NEEDS TO GO BACK TO THE ED FOR ANOTHER X-RAY TO RULE OUT A DISLOCATION OF HIS RIGHT ELBOW. PATIENT DENIES FEVER, CHILLS, SHORTNESS OF BREATH, CHEST PAIN, ABDOMINAL PAIN, NAUSEA, VOMITING, HEADACHE, OR OTHER COMPLAINTS. NO OTHER SYMPTOMS OR MODIFYING FACTORS AT THIS TIME. PATIENT IS ALERT, ORIENTED X 4, AND HAS STEADY GAIT. Chief Complaint: Upper Extremity Time Seen by MD: 13:36 Primary Care Provider: YANI Corona Notes: Nurses Notes, Medications, Allergies Allergies: Coded Allergies: NO KNOWN ALLERGIES (Unverified , 05/03/15) Home Meds Active Scripts Ibuprofen (Ibuprofen) 800 Mg Tab, 1 TAB PO TID, #24 TAB Prov:RODRIGO ORLANDO 05/28/25 Methylprednisolone (Medrol Dosepak) 4 Mg Shemar, 4 MG PO UD for 6 Days, #21 TAB 1 Refill UAD Prov:MERCED DECKER UT[employer] DIVISION PROJECT MANAGER 08/31/24 Tramadol Hcl (Tramadol Hcl) 50 Mg Tab, 50 MG PO Q8HP PRN for 5 Days, #15 TAB 0 Refills Prov:KOBE MEJIA JAVA [employer]BILE DEVELOPER 08/27/24 Baclofen (Baclofen) 10 Mg Tab, 10 MG PO BID, #20 TAB Prov:RODRIGO ORLANDO 08/22/24 Ibuprofen (Ibuprofen) 800 Mg Tab, 1 TAB PO TID, #30 TAB Prov:RODRIGO ORLANDO 08/22/24 Lidocaine HCl (Mouth-Throat) (Lidocaine HCl Viscous) 2 % Kera, 5 ML MT TID, #100 ML Prov:RODRIGO ORLANDO 07/04/24 Promethazine-Dm (Promethazine Dm 6.25-15 mg/5Ml) 1 Kera Kera, 5 ML PO TID, #160 ML Prov:RODRIGO ORLANDO 07/04/24 Albuterol Sulfate (VENTOLIN MDI) 90 Mcg Ih, 2 PUFF IN Q4HPRN, #1 INH 0 Refills Prov:JONATHAN LOPEZ 07/02/24 Acetaminophen (Acetaminophen) 500 Mg Tab, 500 MG PO Q4HPRN, #30 TAB 0 Refills Prov:JONATHAN LOPEZ 07/02/24 Prednisone (Prednisone) 20 Mg Tab, 20 MG PO BID for 5 Days, #10 TAB 0 Refills Prov:JONATHAN LOPEZ 07/02/24 Amoxicillin & Pot Clavulanate (Amoxicillin/Potassium Cla) 875 Mg Tab, 1 TAB PO BID for 7 Days, #14 TAB 0 Refills Prov:JONATHAN LOPEZ 07/02/24 Cephalexin Monohydrate (Cephalexin) 500 Mg Cap, 1 CAP PO QID, #28 CAP Prov:RODRIGO ORLANDO 05/30/24 Acetaminophen (Tylenol Extra Strength Fo) 500 Mg Tab, 650 MG PO TID, #30 TAB Prov:RODRIGO ORLANDO 01/26/24 Azithromycin (Azithromycin) 500 Mg Tab, 1 TAB PO DAILY, #5 TAB Prov:RODRIGO ORLANDO 01/26/24 Ibuprofen Micronized (Ibuprofen) 600 Mg Tab, 600 MG PO TIDP PRN for 30 Days, #90 TAB 0 Refills Prov:KOBE MEJIA NP 01/09/24 Ibuprofen (Ibuprofen) 800 Mg Tab, 1 TAB PO TID, #30 TAB Prov:RODRIGO ORLANDO 04/18/23 Ibuprofen (Ibuprofen) 800 Mg Tab, 1 TAB PO TID, #24 TAB Prov:RODRIGO ORLANDO 03/30/23 Amoxicillin Trihydrate (Amoxicillin) 875 Mg Tab, 1 TAB PO BID, #20 TAB Prov:RODRIGO ORLANDO 03/30/23 Ibuprofen (Ibuprofen) 600 Mg Tab, 1 TAB PO Q6HPRN PRN, #30 TAB 0 Refills Prov:LUCA BONILLA 02/23/23 Amoxicillin & Pot Clavulanate (AUGMENTIN TABLET) 875 Mg Tb, 875 MG PO BID for 7 Days, #14 TAB 0 Refills Prov:LUCA BONILLA 02/23/23 Information Source: Patient Mode of Arrival: Ambulatory Severity: Mild, Moderate Timing: Days Duration: Since onset, Days Prehospital treatment: None Medication Refill: For: Other (RIGHT ELBOW PAIN) Past Medical History PAST MEDICAL HISTORY: Asthma Past Medical History (Other): RIGHT RADIUS HEAD FX Surgical History: Tonsillectomy Family History Family History: Reviewed,noncontributory to illness Social History Smoker: Non-Smoker Alcohol: Occasionally Drugs: Marijuana Lives In: Home Constitutional: denies: chills, diaphoresis, fatigue, fever, malaise, sweats, weakness, others EENTM: denies: blurred vision, double vision, ear bleeding, ear discharge, ear drainage, ear pain, ear ringing, eye pain, eye redness, hearing loss, mouth pain, mouth swelling, nasal discharge, nose bleeding, nose congestion, nose pain, photophobia, tearing, throat pain, throat swelling, voice changes, others Respiratory: denies: cough, hemoptysis, orthopnea, SOB at rest, shortness of breath, SOB with excertion, stridor, wheezing, others Cardiovascular: denies: chest pain, dizzy spells, diaphoresis, Dyspnea on exertion, edema, irregular heart beat, left arm pain, lightheadedness, palpitations, PND, syncope, others Gastrointestinal: denies: abdomen distended, abdominal pain, blood streaked bowels, constipated, diarrhea, dysphagia, difficulty swallowing, hematemesis, melena, nausea, poor appetite, poor fluid intake, rectal bleeding, rectal pain, vomiting, others Genitourinary: denies: burning, dysuria, flank pain, frequency, hematuria, incontinence, penile discharge, penile sore, pain, testicle pain, testicle swelling, urgency, others Neurological: denies: dizziness, fainting, headache, left sided numbness, left sided weakness, numbness, paresthesia, pre-existing deficit, right sided numbness, right sided weakness, seizure, speech problems, tingling, tremors, weakness, others Musculoskeletal: reports: joint pain, others (RIGHT ELBOW PAIN); denies: back pain, gout, joint swelling, muscle pain, muscle stiffness, neck pain Integumetry: denies: bruises, change in color, change in hair/nails, dryness, laceration, lesions, lumps, rash, wounds, others Allergic/Immunocompromised: denies: Difficulty Healing, Frequent Infections, Hives, Itching, others Hematologic/Lymphatic: denies: anemia, blood clots, easy bleeding, easy bruising, swollen glands, others Endocrine: denies: excessive hunger, excessive sweating, excessive thirst, excessive urination, flushing, intolerance to cold, intolerance to heat, une xplained weight gain, unexplained weight loss, others Psychiatric: denies: anxiety, bipolar disorder, depression, hopeless, panic disorder, schizophrenia, sleepless, suicidal, others All Other Systems: Reviewed and Negative Physical Exam General Appearance: No Apparent Distress, Normal, Other (ANXIOUS ) HEENT: Normal ENT Inspection, PERRL/EOMI, Pharynx Normal, TMs Normal Neck: Full Range of Motion, Non-Tender, Normal, Normal Inspection Respiratory: Chest Non-Tender, Lungs Clear, No Accessory Muscle Use, No Respiratory Distress, Normal Breath Sounds Cardiovascular: No Edema, No JVD, No Murmur, No Gallop, Normal Peripheral Pulses, Regular Rate/Rhythm Breast Exam: Deferred Gastrointestinal: No Organomegaly, Non Tender, No Pulsatile Mass, Normal Bowel Sounds, Soft Genitalia: Deferred Pelvic: Deferred Rectal: Deferred Extremities: Decreased range of motion (SLIGHTLY. ), No calf tenderness, Normal capillary refill, No pedal edema, Tender (ON RIGHT ELBOW, MILD SWELLING, NO D EFORMITY. ) Musculoskeletal : Apperance: Normal Neurologic: Alert, photographer scientific II-XII nml as Tested, No Motor Deficits, Normal Affect, Normal Mood, No Sensory Deficits Cerebellar Function: Normal Reflexes: Normal Skin: Dry, Normal Color, Warm Peripheral Pulses: 2+ carotid (R), 2+ carotid (L) Lymphatic: No Adenopathy Was a procedure done? Was a procedure done?: No Differential Dx Considerations may include: RIGHT ELBOW PAIN, HISTORY OF RIGHT RADIAL HEAD FRACTURE, WELL CHECK X-Ray, Labs, Meds, VS Vital Signs Date Time Temp Pulse Resp B/P (MAP) Pulse Ox O2 Delivery O2 Flow Rate FiO2 06/18/25 13:31 98.0 82 18 107/70 97 98.0 X-Ray, Labs, Meds, VS Comment EXTERNAL MEDICAL RECORDS REVIEWED: [NONE] INDEPENDENT HISTORIANS: [NONE] SOCIAL DETERMINANTS OF HEALTH: [NONE] LABS ORDERED: NONE REVIEWED AND INTERPRETED RESULTS: NONE IMAGING ORDERED: XR ELBOW RT TREATMENTS ORDERED: NONE PROCEDURES PERFORMED: NONE CRITICAL CARE TIME: NONE I HAVE DISCUSSED THE PATIENT WITH THE ATTENDING PHYSICIAN DR. RICCI AND HE AGREES WITH THE PATIENT'S PLAN OF CARE. AN X-RAY OF THE PATIENT'S RIGHT ELBOW WAS ORDERED, BUT THE PATIENT STATED THAT HE WOULD NOT WANT AN X-RAY AND WOULD LIKE TO LEAVE AND GO TO A DIFFERENT HOSPITAL. PATIENT WAS INFORMED THAT HE WOULD NEED TO SIGN OUT AMA, BUT HE DID NOT AND ELOPED. Time of 1ST Reevaluation: 14:30 Reevaluation 1ST: Unchanged Patient Education/Counseling: Diagnosis, Treatment Family Education/Counseling: Diagnosis, Treatment SEPSIS Sepsis Screen Date sepsis recognized/suspect: Jun 18, 2025 Time Sepsis recognized/suspect: 1333 Recent Procedure: No On Antibiotic Therapy: No Respiratory Rate >20: No Heart Rate >90: Yes Temp<36 C (96.8 F) or >38.3 C: No SBP <90 or MAP <65 mmHG: No New Acute Mental Status Change: No Is the patient on CPAP, BIPAP,: No Vital Signs Date Time Temp Pulse Resp B/P (MAP) Pulse Ox O2 Delivery O2 Flow Rate FiO2 06/18/25 13:31 98.0 82 18 107/70 97 98.0 Departure 1 Departure Time of Disposition: 14:30 Impression: Primary Impression: Right elbow pain Additional Impression: Closed fracture of head of right radius Qualified Codes: S52.124D - Nondisplaced fracture of head of right radius, subsequent encounter for closed fracture with routine healing Disposition: 07 LEFT AWOL/ELOPED Condition: Stable Critical Care Note Critical Care Time?: No Stability Stability form required: No I personally scribed for RODRIGO ORLANDO ([email or web address]) on 06/18/25 at 15:03. Electronically submitted by Eugenio Gomez ([email or web address]). RODRIGO ORLANDO Jun 18, 2025 15:03
== END 2025-06-18 14:52 | disposition left against medical advice (07) ==
LOC: ER 13:27
DX: M25.521 Pain in right elbow (principal); S52.124D Nondisplaced fracture of head of right radius, subsequent encounter for closed fracture with routine healing; J45.909 Unspecified asthma, uncomplicated; Z79.899 Other long term (current) drug therapy; Z90.89 Acquired absence of other organs; X58.XXXD Exposure to other specified factors, subsequent encounter

== ENCOUNTER 2025-06-19 11:38 | Emergency (ER) | payer MEDICAID ==
[~2025-06-19] VITALS: Ht 180.3 cm; Wt 111.1 kg
--- NOTE | 2025-06-19 12:12 | ED.PDOC ---
Musculoskeletal HPI Comments This is a 19 year old male presenting to the ED with chief complaint of right elbow pain. Patient reports that he has history of a right radial head fracture for the past month. Patient relays that he visited his PCP recently and had a referral made to orthopedics. Patient states that he had an XR and CT performed, showing that his right elbow was dislocated. Patient notes he was advised to come to the ED for reduction prior to his next ortho appointment on 06/22/25. Patient denies any numbness, weakness, tingling, or further injury. Chief Complaint: Upper Extremity Time Seen by MD: 12:09 Primary Care Provider: YANI Reviewed Notes: Nurses Notes, Medications, Allergies Allergies: Coded Allergies: NO KNOWN ALLERGIES (Unverified , 05/03/15) Home Meds Active Scripts Ibuprofen (Ibuprofen) 800 Mg Tab, 1 TAB PO TID, #24 TAB Prov:RODRIGO ORLANDO 05/28/25 Methylprednisolone (Medrol Dosepak) 4 Mg Shemar, 4 MG PO UD for 6 Days, #21 TAB 1 Refill UAD Prov:MERCED DECKER ENGINEERING PSYCHOLOGIST 08/31/24 Tramadol Hcl (Tramadol Hcl) 50 Mg Tab, 50 MG PO Q8HP PRN for 5 Days, #15 TAB 0 Refills Prov:KOBE MEJIA MUTUAL FUND ACCOUNTANT 08/27/24 Baclofen (Baclofen) 10 Mg Tab, 10 MG PO BID, #20 TAB Prov:RODRIGO ORLANDO 08/22/24 Ibuprofen (Ibuprofen) 800 Mg Tab, 1 TAB PO TID, #30 TAB Prov:RODRIGO ORLANDO 08/22/24 Lidocaine HCl (Mouth-Throat) (Lidocaine HCl Viscous) 2 % Kera, 5 ML MT TID, #100 ML Prov:RODRIGO ORLANDO 07/04/24 Promethazine-Dm (Promethazine Dm 6.25-15 mg/5Ml) 1 Kera Kera, 5 ML PO TID, #160 ML Prov:RODRIGO ORLANDO 07/04/24 Albuterol Sulfate (VENTOLIN MDI) 90 Mcg Ih, 2 PUFF IN Q4HPRN, #1 INH 0 Refills Prov:JONATHAN LOPEZ 07/02/24 Acetaminophen (Acetaminophen) 500 Mg Tab, 500 MG PO Q4HPRN, #30 TAB 0 Refills Prov:JONATHAN LOPEZ 07/02/24 Prednisone (Prednisone) 20 Mg Tab, 20 MG PO BID for 5 Days, #10 TAB 0 Refills Prov:JONATHAN LOPEZ 07/02/24 Amoxicillin & Pot Clavulanate (Amoxicillin/Potassium Cla) 875 Mg Tab, 1 TAB PO BID for 7 Days, #14 TAB 0 Refills Prov:JONATHAN LOPEZ 07/02/24 Cephalexin Monohydrate (Cephalexin) 500 Mg Cap, 1 CAP PO QID, #28 CAP Prov:RODRIGO ORLANDO 05/30/24 Acetaminophen (Tylenol Extra Strength Fo) 500 Mg Tab, 650 MG PO TID, #30 TAB Prov:RODRIGO ORLANDO 01/26/24 Azithromycin (Azithromycin) 500 Mg Tab, 1 TAB PO DAILY, #5 TAB Prov:RODRIGO ORLANDO 01/26/24 Ibuprofen Micronized (Ibuprofen) 600 Mg Tab, 600 MG PO TIDP PRN for 30 Days, #90 TAB 0 Refills Prov:KOBE MEJIA NP 01/09/24 Ibuprofen (Ibuprofen) 800 Mg Tab, 1 TAB PO TID, #30 TAB Prov:RODRIGO ORLANDO 04/18/23 Ibuprofen (Ibuprofen) 800 Mg Tab, 1 TAB PO TID, #24 TAB Prov:RODRIGO ORLANDO 03/30/23 Amoxicillin Trihydrate (Amoxicillin) 875 Mg Tab, 1 TAB PO BID, #20 TAB Prov:RORDIGO ORLANDO 03/30/23 Ibuprofen (Ibuprofen) 600 Mg Tab, 1 TAB PO Q6HPRN PRN, #30 TAB 0 Refills Prov:LUCA BONILLA 02/23/23 Amoxicillin & Pot Clavulanate (AUGMENTIN TABLET) 875 Mg Tb, 875 MG PO BID for 7 Days, #14 TAB 0 Refills Prov:LUCA BONILLA 02/23/23 Information Source: Patient Mode of Arrival: Ambulatory Location: Right Extremity Location: Elbow Timing: Weeks Prehospital treatment: None Severity: Moderate Able to Move Extremity: No Bear Weight: Fully Pain: Moderate Mechanism: Blunt Trauma Circumstances: Fall Onset of Symptoms: After Trauma Symptoms: Pain DVT Risk Factors: NONE Last Tetanus: Unknown Past Medical History PAST MEDICAL HISTORY: Asthma Past Medical History (Other): Rt radial head fracture Surgical History: Tonsillectomy Family History Family History: Reviewed,noncontributory to illness Social History Smoker: Non-Smoker Alcohol: Occasionally Drugs: Marijuana Lives In: Home Constitutional: denies: chills, diaphoresis, fatigue, fever, malaise, sweats, weakness, others EENTM: denies: blurred vision, double vision, ear bleeding, ear discharge, ear drainage, ear pain, ear ringing, eye pain, eye redness, hearing loss, mouth pain, mouth swelling, nasal discharge, nose bleeding, nose congestion, nose pain, photophobia, tearing, throat pain, throat swelling, voice changes, others Respiratory: denies: cough, hemoptysis, orthopnea, SOB at rest, shortness of breath, SOB with excertion, stridor, wheezing, others Cardiovascular: denies: chest pain, dizzy spells, diaphoresis, Dyspnea on exertion, edema, irregular heart beat, left arm pain, lightheadedness, pa lpitations, PND, syncope, others Gastrointestinal: denies: abdomen distended, abdominal pain, blood streaked bowels, constipated, diarrhea, dysphagia, difficulty swallowing, hematemesis, melena, nausea, poor appetite, poor fluid intake, rectal bleeding, rectal pain, vomiting, others Genitourinary: denies: burning, dysuria, flank pain, frequency, hematuria, incontinence, penile discharge, penile sore, pain, testicle pain, testicle swelling, urgency, others Neurological: denies: dizziness, fainting, headache, left sided numbness, left sided weakness, numbness, paresthesia, pre-existing deficit, right sided numbness, right sided weakness, seizure, speech problems, tingling, tremors, weakness, others Musculoskeletal: reports: others (Rt elbow pain); denies: back pain, gout, joint pain, joint swelling, muscle pain, muscle stiffness, neck pain Integumetry: denies: bruises, change in color, change in hair/nails, dryness, laceration, lesions, lumps, rash, wounds, others Allergic/Immunocompromised: denies: Difficulty Healing, Frequent Infections, Hives, Itching, others Hematologic/Lymphatic: denies: anemia, blood clots, easy bleeding, easy bruising, swollen glands, others Endocrine: denies: excessive hunger, excessive sweating, excessive thirst, excessive urination, flushing, intolerance to cold, intolerance to heat, unexplained weight gain, unexplained weight loss, others Psychiatric: denies: anxiety, bipolar disorder, depression, hopeless, panic disorder, schizophrenia, sleepless, suicidal, others All Other Systems: Reviewed and Negative Physical Exam General Appearance: No Apparent Distress, Normal HEENT: Normal ENT Inspection, Pharynx Normal, TMs Normal Neck: Full Range of Motion, Non-Tender, Normal, Normal Inspection Respiratory: Chest Non-Tender, Lungs Clear, No Accessory Muscle Use, No Respiratory Distress, Normal Breath Sounds Cardiovascular: No Edema, No JVD, No Murmur, No Gallop, Normal Peripheral Pulses, Regular Rate/Rhythm Breast Exam: Deferred Gastrointestinal: No Organomegaly, Non Tender, No Pulsatile Mass, Normal Bowel Sounds, Soft Genitalia: Deferred Pelvic: Deferred Rectal: Deferred Extremities: No calf tenderness, Normal capillary refill, Normal inspection, Normal range of motion, Non-tender, No pedal edema Musculoskeletal : Location: Right Extremity Location: Elbow Apperance: Tenderness Neurologic: Alert, crm marketing analyst II-XII nml as Tested, No Motor Deficits, Normal Affect, Normal Mood, No Sensory Deficits Cerebellar Function: Normal Reflexes: Normal Skin: Dry, Normal Color, Warm Lymphatic: No Adenopathy Was a procedure done? Was a procedure done?: No Differential Diagnosis EXT Differential Diagnosis: Fracture, Sprain, Dislocation, Contusion, Strain X-Ray, Labs, Meds, VS Vital Signs Date Time Temp Pulse Resp B/P (MAP) Pulse Ox O2 Delivery O2 Flow Rate FiO2 06/19/25 16:49 77 14 97 Room Air* 0 21 06/19/25 16:46 73 18 119/78 (92) 99 06/19/25 15:45 98.6 91 16 148/87 (107) 99 98.6 06/19/25 11:40 98.1 81 18 137/84 96 98.1 Current Medications Medications (Trade) Dose Ordered Sig/Madeleine Route Start Time Stop Time Status Last Admin Sodium Chloride 1,000 ml @ 1,000 mls/hr Q1H ONCE IV 06/19/25 15:00 06/19/25 15:59 DC 06/19/25 16:25 Propofol (Diprivan) 100 mg ONCE ONCE IV 06/19/25 15:00 06/19/25 15:01 DC 06/19/25 17:15 Ondansetron HCl (Zofran) 4 mg ONCE ONCE IV 06/19/25 15:00 06/19/25 15:01 DC 06/19/25 16:36 Time of 1ST Reevaluation: 13:00 Reevaluation 1ST: Improved Patient Education/Counseling: Diagnosis, Treatment Family Education/Counseling: No Family Present Departure 1 Departure Time of Disposition: 18:32 (Patient's elbow was reduced best possible and splinted. patient will follow up with ortho this week) Impression: Primary Impression: Recurrent dislocation, right elbow Disposition: 01 HOME / SELF CARE / HOMELESS Condition: Stable Referrals: KATHARINA KEARNEY MD Additional Instructions: You have a recurrent dislocation of your right elbow. Placement was improved. It is important to follow up with the Orthopedic surgery babita Discharged With: Self Critical Care Note Critical Care Time?: No Stability Stability form required: No Heart Score Heart Score: Heart Score Response (Comments) Value History N/A 0 EKG N/A 0 Age N/A 0 Risk Factors N/A 0 Troponin N/A 0 Total 0 I personally scribed for EAVN CARDONA MD ([email or web address]) on 06/19/25 at 12:12. Electronically submitted by Martín Shah ([email or web address]). EVAN CARDONA MD Jun 19, 2025 12:12
--- NOTE | 2025-06-19 13:02 | DVH ---
EXAM: XY R ELBOW 3 VIEW XRAY HISTORY: right elbow pain, hx of dislocation and possible fracture COMPARISON: XY R ELBOW 3 VIEW XRAY on DOS: 05/28/25, XY R ELBOW 2V XRAY on DOS: 05/24/25, XY R ELBOW 3 VIEW XRAY on DOS: 05/24/25, XY R FOOT 3 VIEW XRAY on DOS: 04/18/23 TECHNIQUE: Three views of the right elbow were performed. FINDINGS/IMPRESSION: 1. Study positive for right elbow fracture-dislocation. A small fracture fragment projecting in the anterior joint space, likely arising from the right proximal radius. The radial head is dislocated posterior to the capitellum, best appreciated on the lateral film. 2. There are small calcifications identified in the medial and lateral joint spaces on the AP films, and these may represent small avulsion fractures or sequela of old ligamentous injury.
[2025-06-19] MEDS: SODIUM CHLORIDE 0.9% 1,000 ML IV ONE (16:25)
[2025-06-19] MEDS: ONDANSETRON HCL 4 MG/2 ML VIAL IV ONE (16:36)
[2025-06-19 16:49] VITALS: PULSE 77; RESP 14; O2SAT 97
[2025-06-19] MEDS: PROPOFOL 10 MG/ML 20 ML IV ONE (17:15)
[2025-06-19] MEDS: MORPHINE SULFATE 4 MG/ML SYR/VIAL IV ONE (17:50)
[2025-06-19 18:00] VITALS: BP 116/77; PULSE 77; RESP 16; TEMP 98.4; O2SAT 98
--- NOTE | 2025-06-19 18:22 | DVH ---
CLINICAL INDICATION: right elbow pain TECHNIQUE: 3 radiographic views of the right elbow were obtained. Comparison: XY R ELBOW 3 VIEW XRAY on DOS: 06/19/25, XY R ELBOW 3 VIEW XRAY on DOS: 05/28/25, XY R ELBOW 2V XRAY on DOS: 05/24/25 FINDINGS/IMPRESSION: Questionable persistent subluxation of the proximal ulna is noted. This may be due to poor positioning in the splint. Bony fragment off the coronoid process of the proximal ulna.
== END 2025-06-19 19:25 | disposition home or self-care (01) ==
LOC: ER 11:38
DX: M24.421 Recurrent dislocation, right elbow (principal); J45.909 Unspecified asthma, uncomplicated; F10.90 Alcohol use, unspecified, uncomplicated; F12.90 Cannabis use, unspecified, uncomplicated; Z79.899 Other long term (current) drug therapy; Z90.89 Acquired absence of other organs; Z79.52 Long term (current) use of systemic steroids; Z79.1 Long term (current) use of non-steroidal anti-inflammatories (NSAID)
CPT/HCPCS: 24600; 73080; 96361; 96374; 99285; J2405; J2704; J7030

== ENCOUNTER 2025-07-08 00:32 | Emergency (ER) | payer MEDICAID, OTHER ==
[~2025-07-08] VITALS: Ht 167.6 cm; Wt 105.0 kg
--- NOTE | 2025-07-08 00:49 | ED.PDOC ---
History of Present Illness HPI Comments This is a 20-year-old male who presents to the ED via EMS with a chief complaint of wound check. Patient had left elbow dislocation surgery yesterday at [facility]. Patient reports waking up covered in blood at the wound site. Patient reports additional symptoms of lightheadedness at this time. Patient has been taking Percocets for the pain. Patient has no further complaints or modifying factors at this time. REVIEW OF SYSTEMS: General: No fever, no chills, or fatigue HEENT: No sore throat, no earache, no congestion, no neck pain. Cardiac: No chest pain. No palpitations. Lungs: No shortness of breath, no cough. GI: No nausea, no vomiting, no diarrhea, no constipation, no abdominal pain : No dysuria, frequency, or urgency. No hematuria. Musculoskeletal: + joint pain , no joint swelling, no extremity edema. Skin: No rash, no itching. Neuro: No headache, no dizziness, no weakness (And as sated in HPI) PHYSICAL EXAM: General: Awake, alert and oriented. No acute distress. Skin: Skin in warm, dry and intact. Appropriate color for ethnicity. HEENT: The head is normocephalic and atraumatic. Conjunctivae are clear without exudates or hemorrhage. Sclera is non-icteric. Eyelids are normal in appearance without swelling or lesions. Oral mucosa is pink and moist Neck: The neck is supple with normal range of motion. No JVD. Cardiac: Heart rate and rhythm are normal. No murmurs, gallops, or rubs are auscultated. Respiratory: No signs of respiratory distress. Lung sounds are clear in all lobes bilaterally without rales, rhonchi, or wheezes. Abdominal: Abdomen is soft, non-tender without distention, guarding or rigidity. Bowel sounds are present and normoactive in all four quadrants. Extremities: Lower extremities without edema. Neurological: The patient is awake, alert and oriented to person, place, and time with normal speech. Speech is clear. There is no facial asymmetry. Psychiatric: Appropriate mood and affect. Good judgement and insight. Chief Complaint: Wound Check Time Seen by MD: 00:42 Reviewed Notes: Medications, Allergies Allergies: Coded Allergies: NO KNOWN ALLERGIES (Unverified , 07/08/25) Information Source: Patient Mode of Arrival: EMS Severity: Moderate Timing: Hours Duration: Since onset Past Medical History PAST MEDICAL HISTORY: Denies Surgical History: Denies all surgeries Family History Family History: Reviewed,noncontributory to illness, No family hx of Cancer, No family hx of DM, No family hx of Heart mary kay, No family hx of HTN, No family hx ofKidney mary kay, No family hx of Liver mary kay, No family hx of Lung mary kay, No family hx of Stroke Social History Smoker: Non-Smoker Alcohol: Denies ETOH Use Drugs: Denies Drug Use Was a procedure done? Was a procedure done?: No X-Ray, Labs, Meds, VS Vital Signs Date Time Temp Pulse Resp B/P (MAP) Pulse Ox O2 Delivery O2 Flow Rate FiO2 07/08/25 01:27 98.7 77 13 148/112 (124) 100 98.7 07/08/25 01:21 77 13 148/112 07/08/25 00:43 98.7 96 16 166/100 96 98.7 Lab Test 07/08/25 01:46 Range/Units White Blood Count Pending Red Blood Count Pending Hemoglobin Pending Hematocrit Pending Mean Corpuscular Volume Pending Mean Corpuscular Hemoglobin Pending Mean Corpuscular Hemoglobin Concent Pending Red Cell Distribution Width Pending Platelet Count Pending Mean Platelet Volume Pending Neutrophils (%) (Auto) Pending Lymphocytes (%) (Auto) Pending Monocytes (%) (Auto) Pending Basophils (%) (Auto) Pending Neutrophils # (Auto) Pending Lymphocytes # (Auto) Pending Monocytes # (Auto) Pending Sodium Level Pending Potassium Level Pending Chloride Level Pending Carbon Dioxide Level Pending Anion Gap Pending Blood Urea Nitrogen Pending Creatinine Pending Glomerular Filtration Rate Calc Pending BUN/Creatinine Ratio Pending Serum Glucose Pending Calcium Level Pending Current Medications Medications (Trade) Dose Ordered Sig/Madeleine Route Start Time Stop Time Status Last Admin Morphine Sulfate 4 mg ONCE ONCE IV 07/08/25 01:00 07/08/25 01:01 DC 07/08/25 01:21 Ondansetron HCl (Zofran) 4 mg ONCE ONCE IV 07/08/25 01:00 07/08/25 01:01 DC 07/08/25 01:22 Time of 1ST Reevaluation: 01:23 Reevaluation 1ST: Unchanged Patient Education/Counseling: Diagnosis, Treatment, Need For Follow Up Family Education/Counseling: No Family Present SEPSIS Sepsis Screen Physician Orders Complete Blood Count (07/08/25 01:04) Basic Metabolic Panel (07/08/25 01:04) Vital Signs Date Time Temp Pulse Resp B/P (MAP) Pulse Ox O2 Delivery O2 Flow Rate FiO2 07/08/25 01:27 98.7 77 13 148/112 (124) 100 98.7 07/08/25 01:21 77 13 148/112 07/08/25 00:43 98.7 96 16 166/100 96 98.7 Laboratory Tests Test 07/08/25 01:46 White Blood Count Pending Medications Medications Dose Ordered Sig/Madeleine Route Start Time Stop Time Status Last Admin Dose Admin Morphine Sulfate 4 mg ONCE ONCE IV 07/08/25 01:00 07/08/25 01:01 DC 07/08/25 01:21 Ondansetron HCl 4 mg ONCE ONCE IV 07/08/25 01:00 07/08/25 01:01 DC 07/08/25 01:22 Departure 1 Departure Time of Disposition: 02:00 Comments 20 M presented to the ED with dressing from recent surgery soaked in blood. Large blood clot noted around external fixator site with forcful gush of blood once dressing was removed. Touriquet was placed. Dressing placed around at fixator site. Discussed with ED proveder at [place] [facility] where robert had surgery. He stated he needs to discuss with surgeon exploitation analyst prior to accepting patient for admission. Discussed with Dr. Morfin, orthopedics at [facility]. Recommendation is to remove tourniquet. Place dressing around external fixator site. Observe for further bleeding. Critical Care Note Critical Care Time?: No Stability Stability form required: No Heart Score Heart Score: Heart Score Response (Comments) Value History N/A 0 EKG N/A 0 Age N/A 0 Risk Factors N/A 0 Troponin N/A 0 Total 0 I personally scribed for KRISTYN HORNER MD ([email or web address]) on 07/08/25 at 00:49. Electronically submitted by Pascale MaySien). KRISTYN HORNER MD Jul 08, 2025 00:49
[2025-07-08] MEDS: MORPHINE SULFATE 4 MG/ML SYR/VIAL IV ONE (01:21)
[2025-07-08] MEDS: ONDANSETRON HCL 4 MG/2 ML VIAL IV ONE (01:22)
[2025-07-08 01:25] VITALS: PULSE 77; RESP 13; O2SAT 100
[2025-07-08 02:03] LABS: Hematocrit 41.2 % (41.0-53.0); Hemoglobin 14.1 g/dL (13.5-17.5); Mean Corpuscular Hemoglobin 29.9 pg (28.0-32.0); Mean Corpuscular Volume 87.4 fL (80.0-100.0); Nucleated Red Blood Cells % 0.0 %
[2025-07-08 02:15] LABS: Anion Gap 9 (5-15); Carbon Dioxide 25 mmol/L (20-31); Chloride 104 mmol/L (98-107); Potassium 4.1 mmol/L (3.5-5.1); Sodium 138 mmol/L (136-145)
[2025-07-08 02:16] LABS: Calcium 9.0 mg/dL (8.7-10.4)
[2025-07-08 02:21] LABS: BUN/Creatinine Ratio 11.0 (10.0-20.0); Blood Urea Nitrogen 8 mg/dL (9-23); Glucose 134 mg/dL (74-106)
[2025-07-08 02:57] VITALS: BP 131/92; PULSE 79; RESP 18; TEMP 98.7; O2SAT 100
== END 2025-07-08 03:10 | disposition short-term general hospital (02) ==
LOC: EDUNIT# 00:32 → EDBD 00:32 → ER 00:32
DX: R42 Dizziness and giddiness (principal); Z79.899 Other long term (current) drug therapy
CPT/HCPCS: 36415; 80048; 85025; 96374; 96375; 99285; J2270; J2405